=== PATIENT | male | born 1975 | race Caucasian/White ===

== ENCOUNTER 2024-11-24 13:17 | Emergency (ER) | payer MEDICARE, MEDICAID, SELFPAY ==
--- NOTE | 2024-11-24 13:20 | XR_ITS ---
WS: [id number] XR chest 1V portable [id number] REASON FOR EXAM: dyspnea/cough FINDINGS: No previous exam for comparison. Moderate tortuosity of the thoracic aorta. Significant cardiomegaly. Central pulmonary vein congestion and diffuse interstitial lung opacities and peribronchial cuffing. XR/XR chest 1V portable [id number] IMPRESSION: Congestive heart failure. Less likely acute or subacute pneumonitis.
[2024-11-24 13:21] VITALS: BP 99/59; PULSE 90; RESP 23; TEMP 36.6; O2SAT 99; BMI 88.6
--- NOTE | 2024-11-24 13:21 | W.ED.GENADLT ---
HPI - General Adult General: Chief complaint: Skin/Abscess/Foreign Body Stated complaint: ulcers - bed sores Time Seen by Provider: 11/24/24 13:19 History of Present Illness: 49-year-old morbidly obese male presents emergency room via EMS due to decubitus ulcers. Patient is awake and alert they report that he uses BiPAP continuously. Patient is morbidly obese enough that he takes 8 people to move him to the cot even then with significant difficulty. He denies any fever sweats or chills. Patient complains of joint pain and hip pain he has not fallen recently states he has decubitus ulcers on his shoulder and on his hips he has his left leg wrapped. He presents here from [facility]. He is difficult to get history for he can answer a few basic questions to understand. He denied chest pain he did seem to indicate some abdominal pain was difficult even to evaluate this. Associated symptoms: Reports dyspnea and rash; Deny chest pain Related Data Home Medications ?Medication ?Instructions ?Recorded ?Confirmed acetaminophen 500 mg tablet 1,000 mg PO Q6H PRN Pain 11/24/24 11/24/24 albuterol sulfate 90 mcg/actuation 2 puff inhalation Q6H PRN 11/24/24 11/24/24 aerosol inhaler Shortness Of Breath bisacodyl 10 mg rectal suppository 10 mg DE DAILY PRN Constipation 11/24/24 11/24/24 (Dulcolax (bisacodyl)) bumetanide 2 mg tablet 2 mg PO DAILY 11/24/24 11/24/24 buspirone 10 mg tablet 10 mg PO TID 11/24/24 11/24/24 cefdinir 300 mg capsule 300 mg PO BID 11/24/24 11/24/24 desvenlafaxine succinate 25 mg 25 mg PO DAILY 11/24/24 11/24/24 tablet,extended release 24 hr (Pristiq) digoxin 125 mcg (0.125 mg) tablet 125 mcg PO DAILY 11/24/24 11/24/24 ergocalciferol (vitamin D2) 1,250 1,250 mcg PO DAILY 11/24/24 11/24/24 mcg (50,000 unit) capsule esomeprazole magnesium 40 mg 40 mg PO DAILY 11/24/24 11/24/24 capsule,delayed release insulin lispro 100 unit/mL See Rx Instructions .Route .COMPLEX 11/24/24 11/24/24 subcutaneous pen ipratropium 0.5 mg-albuterol 3 mg 3 ml inhalation Q6H PRN Shortness 11/24/24 11/24/24 (2.5 mg base)/3 mL nebulization Of Breath soln levocetirizine 5 mg tablet 5 mg PO DAILY 11/24/24 11/24/24 magnesium oxide 400 mg (241.3 mg 400 mg PO DAILY 11/24/24 11/24/24 magnesium) tablet (MagOx) metolazone 5 mg tablet 5 mg PO Q12H 11/24/24 11/24/24 metoprolol succinate 50 mg 50 mg PO DAILY 11/24/24 11/24/24 tablet,extended release 24 hr naloxone 4 mg/actuation nasal spray 4 mg intranasal Q2M PRN overdose 11/24/24 11/24/24 nystatin 100,000 unit/gram topical 1 applic topical BID 11/24/24 11/24/24 powder (Nyamy) ondansetron HCl 4 mg tablet 4 mg PO Q8H 11/24/24 11/24/24 oxycodone-acetaminophen 10 mg-325 1 tab PO Q4H PRN Pain 11/24/24 11/24/24 mg tablet potassium chloride 10 mEq 10 meq PO DAILY 11/24/24 11/24/24 tablet,extended release rivaroxaban 20 mg tablet (Xarelto) 20 mg PO DAILY 11/24/24 11/24/24 rosuvastatin 10 mg tablet 10 mg PO DAILY 11/24/24 11/24/24 sacubitril 24 mg-valsartan 26 mg 1 tab PO BID 11/24/24 11/24/24 tablet spironolactone 50 mg tablet 50 mg PO DAILY 11/24/24 11/24/24 Review of Systems Const: Denies: fever(s) or chills Card: Denies: chest pain Resp: Reports: dyspnea GI: Reports: abdominal pain Skin/Breast: Reports: rash PFSH ED PFSH: Medical History Decubitus ulcers Morbid obesity Atrial fibrillation Congestive heart failure Physical Exam Const: GENERAL APPEARANCE: lethargic ORIENTATION/CONSCIOUSNESS: Yes confused and Yes lethargic HENMT: COMMON NORMALS: normocephalic, atraumatic and hearing grossly normal bilaterally HEAD & SCALP: normocephalic and atraumatic Resp: COMMON NORMALS: normal respiratory effort, No retractions and No use of accessory muscles AUSCULTATION: crackles, wheezes and diminished lung sounds Cardio: COMMON NORMALS: regular rate and No murmurs present (Cardio) RATE: regular rate RHYTHM: abnormal rhythm irregularly irregular GI: COMMON NORMALS: Soft to palpation and No hepatosplenomegaly present AUSCULTATION: Yes normoactive bowel sounds PALPATION: Yes Soft to palpation, No Tenderness to palpation present (GI), No Guarding due to palpation present (GI) and Yes No hepatosplenomegaly present OTHER: Difficult to assess due to body habitus Extremity: COMMON NORMALS: normal to inspection, capillary refill normal, no clubbing, cyanosis or edema, no calf tenderness and no pedal edema Neuro: SENSORIUM/ORIENTATION: Yes lethargic Skin: WOUNDS: Yes wounds noted OTHER: Course Vital Signs: Vital signs: Vital Signs Temperature 97.8 F 11/24/24 13:21 Pulse Rate 81 11/24/24 18:54 Respiratory Rate 23 H 11/24/24 13:21 Blood Pressure 109/71 11/24/24 18:54 Pulse Oximetry 91 11/24/24 18:54 Oxygen Delivery Me thod BiPAP 11/24/24 17:19 Oxygen Flow Rate 10 11/24/24 13:21 Fraction of Inspir ed Oxygen 35 11/24/24 17:45 MDM - General Adult Medical Decision Making Discussed with hospitalist to recommend transfer to facility with capability of advanced imaging. Medical Records I reviewed the patient's medical records. Lab Data I reviewed the patient's lab results. 11/24/24 13:38 11/24/24 13:38 Radiology Impressions Chest X-Ray 11/24/24 13:20 IMPRESSION: Congestive heart failure. Less likely acute or subacute pneumonitis. Gallbladder Ultrasound 11/24/24 16:40 IMPRESSION: Limited exam. No acute findings. Laboratory Results WBC 12.19 10^3/uL (3.29-11.43) H 11/24/24 13:38 RBC 3.68 10^6/uL (3.85-5.65) L 11/24/24 13:38 Hgb 11.60 g/dL (11.27-16.99) 11/24/24 13:38 Hct 37.5 % (37-53) 11/24/24 13:38 MCV 101.9 fl (82-101) H 11/24/24 13:38 MCH 31.5 pg (27-33) 11/24/24 13:38 MCHC 30.9 g/dL (30-55) 11/24/24 13:38 RDW 20.0 % (12.1-15.1) H 11/24/24 13:38 Plt Count 191 10^3/cmm (157-399) 11/24/24 13:38 MPV 10.3 fL (7.4-10.4) 11/24/24 13:38 Neut % (Auto) 86.1 % 11/24/24 13:38 Lymph % (Auto) 7.1 % 11/24/24 13:38 Stark % (Auto) 4.0 % 11/24/24 13:38 Eos % (Auto) 1.9 % 11/24/24 13:38 Baso % (Auto) 0.2 % 11/24/24 13:38 Neut # (Auto) 10.50 10^3/uL (1.8-7.7) H 11/24/24 13:38 Lymph # (Auto) 0.9 10^3/uL (0.8-4.8) 11/24/24 13:38 Stark # (Auto) 0.5 10^3/uL (0.2-0.9) 11/24/24 13:38 Eos # (Auto) 0.2 10^3/uL (0.0-0.8) 11/24/24 13:38 Baso # (Auto) 0.0 10^3/uL (0.0-0.1) 11/24/24 13:38 Nucleated RBC % (auto) 0.5 % 11/24/24 13:38 Nucleated RBCs # 0.1 /100WBC 11/24/24 13:38 Specimen Type Arterial 11/24/24 15:24 Sample Site Radial, left 11/24/24 15:24 ABG pH 7.50 (7.35-7.45) H 11/24/24 15:24 ABG pCO2 52.2 mmHg (35-45) H 11/24/24 15:24 ABG pO2 64.2 mmHg (80.0-100.0) L 11/24/24 15:24 ABG PO2/FiO2 Ratio 214 11/24/24 15:24 ABG HCO3 40.2 mmol/L (22-26) H 11/24/24 15:24 ABG O2 Saturation 91.4 11/24/24 15:24 ABG Base Excess 14.8 mmol/L (-2.0-2.0) H 11/24/24 15:24 Lars Test Pos 11/24/24 15:24 A-a O2 Gradient 11.1 mmHg (5-10) H 11/24/24 15:24 Hematocrit 35.8 % (42-52) L 11/24/24 15:24 Hgb O2 Saturation 88.1 % (95-100) L 11/24/24 15:24 Carboxyhemoglobin 2.8 %THgb (0.4-20.1) 11/24/24 15:24 Methemoglobin 0.9 % (0.4-1.5) 11/24/24 15:24 Total Hemoglobin 11.7 g/dL (14-18) L 11/24/24 15:24 Sodium 143.0 mmol/L (131-143) 11/24/24 15:24 Potassium 3.2 mmol/L (3.5-5.0) L 11/24/24 15:24 Glucose 111.0 mg/dL (70-115) 11/24/24 15:24 Ionized Calcium 1.1 mmol/L (1.1-1.4) 11/24/24 15:24 O2 Delivery Device Bipap 11/24/24 15:24 O2 Liters/Min 10.0 % 11/24/24 13:30 FiO2 30.0 % 11/24/24 15:24 Pediatric Licensed Practical Nurse ID [place] 11/24/24 15:24 Sodium 139 mmol/L (136-145) 11/24/24 13:38 Potassium 3.3 mmol/L (3.5-5.1) L 11/24/24 13:38 Chloride 96 mmol/L (98-107) L 11/24/24 13:38 Carbon Dioxide 34 mmol/L (22-29) H 11/24/24 13:38 Anion Gap 12.3 (5-19) 11/24/24 13:38 BUN 27 mg/dL (6-20) H 11/24/24 13:38 Creatinine 0.9 mg/dL (0.7-1.2) 11/24/24 13:38 GFR Calculation 89.7 mL/min (90-130) L 11/24/24 13:38 Glucose 114 mg/dL (65-115) 11/24/24 13:38 Calculated Osmolality 294 mOsm/kg (285-295) 11/24/24 13:38 Lactic Acid 2.5 mmol/L (0.5-2.2) H 11/24/24 13:38 Lactic Acid (Sepsis) 2.1 mmol/L (0.5-2.2) 11/24/24 15:42 Calcium 8.3 mg/dL (8.5-10.5) L 11/24/24 13:38 Total Bilirubin 2.3 mg/dL (0.15-1.2) H 11/24/24 13:38 AST 33 U/L (0-40) 11/24/24 13:38 ALT 31 U/L (0-41) 11/24/24 13:38 Alkaline Phosphatase 138 U/L (40-130) H 11/24/24 13:38 Creatine Kinase 91 U/L (39-308) 11/24/24 13:38 Total Protein 8.9 g/dL (6.6-8.7) H 11/24/24 13:38 Albumin 2.3 g/dL (3.5-5.2) L 11/24/24 13:38 Globulin 6.6 g/dL (1.3-4.6) H 11/24/24 13:38 Urine Color Dark yellow (Yellow) A 11/24/24 13:45 Urine Appearance Cloudy (CLEAR) A 11/24/24 13:45 Urine pH 8.0 (5-7) A 11/24/24 13:45 Ur Specific [place] 1.010 (1.005-1.030) 11/24/24 13:45 Urine Protein Negative (Negative) 11/24/24 13:45 Urine Glucose (UA) Negative (Normal) 11/24/24 13:45 Urine Ketones Negative (Negative) 11/24/24 13:45 Urine Blood 2+ (Negative) A 11/24/24 13:45 Urine Nitrate Positive (Negative) A 11/24/24 13:45 Urine Bilirubin Negative (Negative) 11/24/24 13:45 Urine Urobilinogen 1.0 mg/dL (Negative) 11/24/24 13:45 Ur Leukocyte Esterase 3+ (Negative) A 11/24/24 13:45 Urine RBC 6-10 /hpf (0-2) 11/24/24 13:45 Urine WBC >100 /hpf (0-5) H 11/24/24 13:45 Ur Squamous Epith Cells 0-5 /hpf (0-5) 11/24/24 13:45 Amorphous Sediment Not Reportable 11/24/24 13:45 Urine Bacteria 4+ /hpf (NONE) H 11/24/24 13:45 Hyaline Casts 55.01 /lpf 11/24/24 13:45 Digoxin 0.8 ng/mL (0.6-1.2) 11/24/24 13:38 All radiology interpretation(s) finalized by discharge Discharge Plan Discharge Patient Disposition: Xfer Short-Term Hosp Clinical Impression: Decubitus ulcers, Sepsis, Morbid obesity, UTI (urinary tract infection), Atrial fibrillation, Elevated bilirubin Condition: Stable Print Language: Urdu Coding Level of Care Code ED Marine Designer for Jose C Cosby
--- NOTE | 2024-11-24 13:25 | ECG_ITS ---
[facility]: 2024-[facility]24 Pat Name: Pio Torres Department: Room: Gender: Male Sea Captain: : 1975 Requested By: Evan Bower Order Number: [id number] Stan MD: Topher Dick M.D. Measurements Intervals Bruce Rate: 75 P: 0 MI: 0 QRS: 260 QRSD: 143 T: 91 QT: 437 QTc: 491 Interpretive Statements ATRIAL FIBRILLATION WITH ABERRANT CONDUCTION OR VENTRICULAR PREMATURE COMPLEXES INTRAVENTRICULAR CONDUCTION DELAY [130+ ms QRS DURATION] ANTEROSEPTAL MYOCARDIAL INFARCTION , OF INDETERMINATE AGE [40+ ms Q WAVE IN V1-V4] No previous ECG available for comparison Electronically Signed On 11-25-2024 13:38:39 CDT by Topher Dick M.D. [email or web address]
--- NOTE | 2024-11-24 13:35 | PC.PHAR ---
patient is from [facility]
[2024-11-24 13:40] LABS: ABG PCO2 48.9 mmHg (35-45); ABG PH Result 7.52 (7.35-7.45); Alveolar-Arterial Oxygen Gradi 2.2 mmHg (5-10); Arterial Blood Gas Hematocrit 36.8 % (42-52); Base Excess ABG 15.1 mmol/L (-2.0-2.0); Blood Gas Allen Test Pos; Blood Gas Operator Identificat WALCI; Blood Gas Sample Site Radial, left; Blood Gas Sample Type Arterial; Carboxyhemoglobin 2.8 %THgb (0.4-20.1); HCO3 ABG 39.9 mmol/L (22-26); HGB O2 Sat 90.7 % (95-100); Ionized Calcium Level - ABG 1.1 mmol/L (1.1-1.4); Methemoglobin 0.8 % (0.4-1.5); Oxygen Device SIMPLE MASK; Oxygen Saturation ABG 94.1; PO2 ABG 72.5 mmHg (80.0-100.0); Potassium Level - ABG 3.1 mmol/L (3.5-5.0)
[2024-11-24 13:52] LABS: Basophils % 0.2 %; Eosinophils # 0.2 10^3/uL (0.0-0.8); Eosinophils % 1.9 %; Hematocrit 37.5 % (37-53); Lymphocytes # 0.9 10^3/uL (0.8-4.8); Lymphocytes % 7.1 %; Mean Corpuscular HGB Conc 30.9 g/dL (30-55); Mean Corpuscular Hemoglobin 31.5 pg (27-33); Mean Corpuscular Volume 101.9 fl (82-101); Mean Platelet Volume 10.3 fL (7.4-10.4); Monocytes # 0.5 10^3/uL (0.2-0.9); Neutrophils % 86.1 %; Nucleated Red Blood Cells # 0.1 /100WBC; Nucleated Red Blood Cells % 0.5 %; Platelet Count 191 10^3/cmm (157-399); Red Blood Count 3.68 10^6/uL (3.85-5.65); White Blood Count 12.19 10^3/uL (3.29-11.43)
[2024-11-24 13:52] LABS: Bilirubin Urine Negative (Negative); Blood Urine 2+ (Negative); Glucose Urine UA Negative (Normal); Ketones Urine Negative (Negative); Leukocyte Esterase Urine 3+ (Negative); Nitrate Urine Positive (Negative); Protein Urine Negative (Negative); Urine Appearance Cloudy (CLEAR)
[2024-11-24 13:57] LABS: Add Urine Microscopic? YES; Bacteria Urine 4+ /hpf; Hyaline Casts Urine 55.01 /lpf; Squamous Epithelial Cell Urine 0-5 /hpf (0-5); WBC Urine >100 /hpf (0-5)
[2024-11-24 14:10] LABS: Alanine Aminotransferase 31 U/L (0-41); Albumin Level 2.3 g/dL (3.5-5.2); Alkaline Phosphatase 138 U/L (40-130); Anion Gap 12.3 (5-19); Aspartate Amino Transferase 33 U/L (0-40); Blood Urea Nitrogen 27 mg/dL (6-20); Calcium 8.3 mg/dL (8.5-10.5); Carbon Dioxide 34 mmol/L (22-29); Chloride 96 mmol/L (98-107); Creatine Phosphokinase 91 U/L (39-308); Creatinine Clr Calc Pharmacy 212.4485; Globulin 6.6 g/dL (1.3-4.6); Glomerular Filtration Rate 89.7 mL/min (90-130); Glucose 114 mg/dL (65-115); Lactic Sepsis W/Reflex 2.5 mmol/L (0.5-2.2); Osmolality Calculated 294 mOsm/kg (285-295); Potassium 3.3 mmol/L (3.5-5.1); Sodium 139 mmol/L (136-145); Total Bilirubin 2.3 mg/dL (0.15-1.2); Total Protein 8.9 g/dL (6.6-8.7)
[2024-11-24 14:11] VITALS: PULSE 76; RESP 24; O2SAT 98
[2024-11-24 14:16] LABS: Urine Color Dark Yellow (Yellow)
[2024-11-24 14:21] LABS: Add Urine Culture? Yes
--- NOTE | 2024-11-24 15:08 | PM.CONSULT ---
Providers/Reason For Consult Consulting Physician/Specialty*: Internal Medicine Reason for Consult*: ER patient History of Present Illness History of Present Illness Pio Torres is a 49 year old male With past medical history of congestive heart failure on Entresto, atrial fibrillation, on chronic anticoagulation, severe morbid obesity, pen[facility] resident, diabetes mellitus insulin-dependent, chronic combined systolic and diastolic heart failure, chronic respiratory failure with hypoxia, hyperlipidemia, major depressive disorder, generalized muscle weakness, nontoxic multinodular goiter history of pulmonary embolism, obstructive sleep apnea, posttraumatic stress disorder, iron deficiency anemia, moderate persistent asthma, hypertension, generalized anxiety disorder, COPD, chronic atrial fibrillation presented to the hospital from [facility] due to decubitus ulcers. Initially when he came to the ER he denied any fever sweats or chills. He complains of joint pain hip pain and pain all over. Denied chest pain dyspnea or rash. When hospitalist interviewed the patient he stated he hurt it all over and did not give me a specific complaint. He seems to be somewhat altered. Currently on BiPAP. Does have wounds to bilateral lower extremities and decubitus ulcers. Images present in ER note. For skin examination I referred to ER images as I cannot examine skin secondary to patient's very large body habitus. Initial labs showed WBC 12,000, hemoglobin 11.6, sodium 142, potassium 3.1, glucose 117, creatinine 0.9, lactic acid 2.5, alkaline phosphatase 138, total bilirubin 2.3. Medina catheter dark urine with greater than 100 WBC, 3+ leukocyte esterase, 2+ blood, positive nitrates. Patient unable to provide a history at this time. History obtained from chart ER doctor nursing staff and paperwork sent via nursing facility. Medications/Allergies Home Medications ?Medication ?Instructions ?Recorded ?Confirmed ?Last Taken ?Type acetaminophen 500 mg tablet 1,000 mg PO Q6H PRN Pain 11/24/24 11/24/24 11/24/24 History albuterol sulfate 90 mcg/actuation 2 puff inhalation Q6H PRN 11/24/24 11/24/24 11/24/24 History aerosol inhaler Shortness Of Breath bisacodyl 10 mg rectal suppository 10 mg UT DAILY PRN Constipation 11/24/24 11/24/24 11/24/24 History (Dulcolax (bisacodyl)) bumetanide 2 mg tablet 2 mg PO DAILY 11/24/24 11/24/24 11/24/24 History buspirone 10 mg tablet 10 mg PO TID 11/24/24 11/24/24 11/24/24 History cefdinir 300 mg capsule 300 mg PO BID 11/24/24 11/24/24 11/24/24 History desvenlafaxine succinate 25 mg 25 mg PO DAILY 11/24/24 11/24/24 11/24/24 History tablet,extended release 24 hr (Pristiq) digoxin 125 mcg (0.125 mg) tablet 125 mcg PO DAILY 11/24/24 11/24/24 11/24/24 History ergocalciferol (vitamin D2) 1,250 1,250 mcg PO DAILY 11/24/24 11/24/24 11/24/24 History mcg (50,000 unit) capsule esomeprazole magnesium 40 mg 40 mg PO DAILY 11/24/24 11/24/24 11/24/24 History capsule,delayed release insulin lispro 100 unit/mL See Rx Instructions .Route .COMPLEX 11/24/24 11/24/24 11/24/24 History subcutaneous pen ipratropium 0.5 mg-albuterol 3 mg 3 ml inhalation Q6H PRN Shortness 11/24/24 11/24/24 11/24/24 History (2.5 mg base)/3 mL nebulization Of Breath soln levocetirizine 5 mg tablet 5 mg PO DAILY 11/24/24 11/24/24 11/24/24 History magnesium oxide 400 mg (241.3 mg 400 mg PO DAILY 11/24/24 11/24/24 11/24/24 History magnesium) tablet (MagOx) metolazone 5 mg tablet 5 mg PO Q12H 11/24/24 11/24/24 11/24/24 History metoprolol succinate 50 mg 50 mg PO DAILY 11/24/24 11/24/24 11/24/24 History tablet,extended release 24 hr naloxone 4 mg/actuation nasal spray 4 mg intranasal Q2M PRN overdose 11/24/24 11/24/24 Unknown History nystatin 100,000 unit/gram topical 1 applic topical BID 11/24/24 11/24/24 11/24/24 History powder (Nyamyc) ondansetron HCl 4 mg tablet 4 mg PO Q8H 11/24/24 11/24/24 Unknown History oxycodone-acetaminophen 10 mg-325 1 tab PO Q4H PRN Pain 11/24/24 11/24/24 11/24/24 History mg tablet potassium chloride 10 mEq 10 meq PO DAILY 11/24/24 11/24/24 11/24/24 History tablet,extended release rivaroxaban 20 mg tablet (Xarelto) 20 mg PO DAILY 11/24/24 11/24/24 11/24/24 History rosuvastatin 10 mg tablet 10 mg PO DAILY 11/24/24 11/24/24 11/24/24 History sacubitril 24 mg-valsartan 26 mg 1 tab PO BID 11/24/24 11/24/24 11/24/24 History tablet spironolactone 50 mg tablet 50 mg PO DAILY 11/24/24 11/24/24 11/24/24 History PFSH Acute PFSH: Medical History Decubitus ulcers Morbid obesity Atrial fibrillation Congestive heart failure Vitals/I&O/Wt Last Vital Signs Temp 97.8 F 11/24/24 13:21 Pulse 76 11/24/24 14:11 Resp 23 H 11/24/24 13:21 BP 99/59 11/24/24 13:21 Pulse Ox 98 11/24/24 14:11 O2 Del Method Nasal Cannula 11/24/24 13:21 O2 Flow Rate 10 11/24/24 13:21 FiO2 30 11/24/24 14:11 Weight last 48 hrs Weight 272.155 kg Physical Exam Narrative: General: Obese male laying in bed with BiPAP on. Altered, mumbling. Unable to answer his questions third and telling me his name. HEENT: Normocephalic, atraumatic, EOMI, on BiPAP at this time. Cardio: Very muffled heart sounds difficult to auscultate secondary to large body habitus Respiratory: Mainly clear to auscultation anteriorly, unable to accurately assess due to very muffled breath sounds due to body habitus and transmitted breath sounds from BiPAP. GI: Abdomen soft, generalized tenderness to palpation, bowel sounds present. Behavior: Altered Extremities: Various lower extremity wounds present. Data 11/24/24 13:38 11/24/24 13:38 Micro: Microbiology 11/24/24 13:41 Blood Culture - Preliminary Blood SPECIMEN COLLECTED 11/24/24 13:38 Blood Culture - Preliminary Blood SPECIMEN COLLECTED A&P Assessment and plan (1) Sepsis: (2) UTI (urinary tract infection): (3) Respiratory alkalosis: (4) Lactic acidosis: (5) Hypoxia: (6) Congestive heart failure: (7) Atrial fibrillation: (8) Wound of lower extremity: (9) Decubitus ulcers: (10) Leukocytosis: Plan #Sepsis secondary to UTI versus respiratory cause #Lactic acidosis #Severe morbid obesity #Decubitus ulcers #Bilateral lower extremity wounds #Chronic congestive heart failure, possibly systolic with EF less than 35% #Atrial fibrillation, rate controlled #Diabetes mellitus, insulin-dependent #Respiratory alkalosis, hypercapnia #Altered mental status # History of pulmonary embolism #Moderate persistent asthma #Hyperlipidemia #Chronic combined systolic diastolic heart failure. We are unable to obtain imaging on the patient secondary to extremely large body habitus. Patient exceeds the weight and circumference size limit for our CT scanner. Our maximum allowed with this 30 inches and patient's girth is greater than 36 inches. We are unable to perform diagnostic CT scan on patient. Ultrasound may be attempted however it will not give us pertinent information secondary to large abdominal fat pad. Patient also has evidence of congestive heart failure noted from his home medications. He is on Entresto spironolactone, metoprolol succinate digoxin and Bumex 2 mg daily which would indicate his EF may be less than 35%. I do not have any records on the patient at this time. Patient meets sepsis criteria secondary to UTI versus respiratory cause. Renal stone must be ruled out for which we will need imaging studies. Total bilirubin elevated at 2.3 as well. Patient currently requiring 10 L nasal cannula possibly secondary respiratory failure secondary to sepsis. Recommend CTA chest to rule out PE as patient carries a history of this from the past as well.. Will he is also altered most likely secondary to metabolic encephalopathy. Most likely source urine versus respiratory as stated above. Patient will require further diagnostic workup however our facility is not equipped with diagnostic imaging services that would meet his girth and weight limit and therefore I recommend transfer to a facility where they be better accommodated. Agree with vancomycin and Zosyn and sepsis bolus given by ER. Check blood cultures, urine culture, sputum culture gram stain. Low threshold to intubate. Recheck blood gas and if worsening will need to be intubated. Check echocardiogram, troponins. EKG does show atrial fibrillation, rate controlled. Q waves in anterior leads indicating old [place]. Patient will need general surgery consultation for evaluation of wounds and possible debridement. Wound care consult also recommended. Keep n.p.o. Once more coherent will require speech swallow evaluation Continue IV fluids at 70 cc/h for gentle fluid hydration secondary to sepsis. Watch for fluid overload which will be difficult to assess secondary to body habitus. Continue moderate dose intensity sliding scale insulin every 6 hours Recommend transfer to higher level of care for further diagnostic imaging especially CT scan could be performed. PDMP PDMP Reviewed: Not Reviewed Diagnoses Sepsis A41.9 UTI (urinary tract infection) N39.0 Respiratory alkalosis E87.3 Lactic acidosis E87.20 Hypoxia R09.02 Congestive heart failure I50.9 Atrial fibrillation I48.91 Wound of lower extremity S81.809A Decubitus ulcers L89.90 Leukocytosis D72.829
[2024-11-24] MEDS: VANCOMYCIN ADD-Vantage 1,000 MG in 0.9% NaCl ADD-Vantage 250 ML 250 MG IV (15:32)
[2024-11-24] MEDS: piperacillin-tazobactam 3.375 GM in sodium chloride 0.9% (plus) 50 ML IV (15:33)
[2024-11-24 15:35] LABS: Reflex Lactate Order REFLEX LACTIC ORDERD
[2024-11-24 15:35] LABS: ABG PCO2 52.2 mmHg (35-45); Alveolar-Arterial Oxygen Gradi 11.1 mmHg (5-10); Arterial Blood Gas Hematocrit 35.8 % (42-52); Base Excess ABG 14.8 mmol/L (-2.0-2.0); Blood Gas Allen Test Pos; Blood Gas Operator Identificat WALCI; Blood Gas Sample Site Radial, left; Blood Gas Sample Type Arterial; Carboxyhemoglobin 2.8 %THgb (0.4-20.1); HCO3 ABG 40.2 mmol/L (22-26); HGB O2 Sat 88.1 % (95-100); Ionized Calcium Level - ABG 1.1 mmol/L (1.1-1.4); Methemoglobin 0.9 % (0.4-1.5); Oxygen Device BIPAP; Oxygen Saturation ABG 91.4; PO2 ABG 64.2 mmHg (80.0-100.0); PO2 FiO2 Ratio Arterial Blood 214; Potassium Level - ABG 3.2 mmol/L (3.5-5.0); Total Hemoglobin 11.7 g/dL (14-18)
[2024-11-24 15:44] VITALS: PULSE 79; RESP 24; O2SAT 98
[2024-11-24 16:15] LABS: Lactic Acid level (Lactate) 2.1 mmol/L (0.5-2.2)
[2024-11-24 16:28] LABS: Digoxin 0.8 ng/mL (0.6-1.2)
--- NOTE | 2024-11-24 16:40 | USR_ITS ---
PROCEDURE INFORMATION: Exam: US Abdomen, Limited; Right Upper Quadrant Exam date and time: 11/24/2024 5:24 PM Age: 49 years old Clinical indication: Abnormal findings; Abnormal lab test; Other: Elevated tbili; PT wouldn't respond to question about surgery. Gb not visualized at this time with no info on if it was surgically removed or not; Additional info: Elevated t bili TECHNIQUE: Imaging protocol: Real time ultrasound of the abdomen with image documentation. Limited exam focused on the right upper quadrant. COMPARISON: No relevant prior studies available. FINDINGS: Liver: Liver is slightly enlarged measuring about 18.8 cm in length. No mass. Gallbladder: Gallbladder is not visualized. Patient is unable to communicate history. Biliary ducts: Common bile duct measures about 7 mm in diameter which is normal if cholecystectomy performed. Pancreas: The pancreas is obscured by bowel. Right kidney: Normal. No mass. No hydronephrosis. US/US gall bladder [id number] IMPRESSION: Limited exam. No acute findings.
--- NOTE | 2024-11-24 16:55 | PC.NURSE ---
FLUIDS AND ABX DELAYED DUE TO NEED FOR BIGGER BED TO ASSESS PT POSTERIOR WOUNDS.
[2024-11-24 17:19] VITALS: BP 115/79; PULSE 87; O2SAT 87
[2024-11-24 17:45] VITALS: RESP 22; O2SAT 95
[2024-11-24 18:54] VITALS: BP 109/71; PULSE 81; O2SAT 91
--- NOTE | 2024-11-24 19:00 | PC.NURSE ---
PT UNABLE TO TOLERATE EMS CPAP. PER DR. GALICIA PT OK TO GO ON NON-REBREATHER. PT TOLERATING AND SATURATING 100% BY NON-REBREATHER.
== END 2024-11-24 18:56 | disposition short-term general hospital (02) ==
PROVIDERS: Emergency Provider Family Medicine
DX: A41.9 Sepsis, unspecified organism (principal); N39.0 Urinary tract infection, site not specified; I48.91 Unspecified atrial fibrillation; E66.01 Morbid (severe) obesity due to excess calories; R17 Unspecified jaundice; I50.9 Heart failure, unspecified; L89.229 Pressure ulcer of left hip, unspecified stage; L89.219 Pressure ulcer of right hip, unspecified stage; L89.109 Pressure ulcer of unspecified part of back, unspecified stage
CPT/HCPCS: 36415; 36600; 71045; 76705; 80051; 80053; 80162; 81001; 82330; 82550; 82805; 83605; 85025; 87040; 87077; 87086; 87186; 93005; 94660; 96365; 96367; 99285; J2543; J3370; J7030; J7050

== ENCOUNTER 2024-12-19 10:11 | Observation (INO) | payer MEDICARE, MEDICAID, SELFPAY ==
[2024-12-19] VITALS (32 sets, daily range): BP systolic 70–135; BP diastolic 51–109; PULSE 64–95; RESP 16–34; O2SAT 70–98
--- NOTE | 2024-12-19 10:26 | XR_ITS ---
WS: [id number] XR chest 1V portable [id number] REASON FOR EXAM: dyspnea/cough FINDINGS: Compared to the examination of 11/24/2024 there may have been some improvement in the right lower lung reticular interstitial and groundglass opacities. Moderate residual abnormality remains. There is significant cardiomegaly and central venous congestion and enlargement of the central pulmonary arteries. XR/XR chest 1V portable [id number] IMPRESSION: Previous abnormalities from 11/24/2024 partially resolved as above. Findings are more compatible with congestive failure than pneumonitis.
--- NOTE | 2024-12-19 10:26 | ECG_ITS ---
[employer] [facility] Test Date: 2024-12-19 Pat Name: Pio Torres Department: Room: Gender: Male Media Librarian: : 1975 Requested By: Evan Bower Order Number: [id number] Stan MD: Topher Dick M.D. Measurements Intervals [place] Rate: 87 P: 0 VT: 0 QRS: 259 QRSD: 130 T: 77 QT: 379 QTc: 458 Interpretive Statements ATRIAL FIBRILLATION WITH ABERRANT CONDUCTION OR VENTRICULAR PREMATURE COMPLEXES RIGHT AXIS DEVIATION [QRS AXIS > 100] RIGHT BUNDLE BRANCH BLOCK [120+ ms QRS DURATION, UPRIGHT V1, 40+ ms S IN I/aVL/V4/V5/V6] ANTEROSEPTAL MYOCARDIAL INFARCTION , OF INDETERMINATE AGE [40+ ms Q WAVE IN V1-V4] Compared to ECG 11/24/2024 13:25:24 Right-axis deviation now present Right bundle-branch block now present Intraventricular conduction delay no longer present Myocardial infarct finding still present Electronically Signed On 12-20-2024 11:37:18 CDT by Topher Dick M.D. [email or web address]
[2024-12-19 10:43] LABS: ABG PCO2 44.3 mmHg (35-45); ABG PH Result 7.36 (7.35-7.45); Alveolar-Arterial Oxygen Gradi 41.1 mmHg (5-10); Arterial Blood Gas Hematocrit 36.2 % (42-52); Blood Gas Allen Test Pos; Blood Gas Operator Identificat CAK; Blood Gas Sample Site Brachial, left; Blood Gas Sample Type Arterial; Carboxyhemoglobin 1.6 %THgb (0.4-20.1); HCO3 ABG 24.7 mmol/L (22-26); HGB O2 Sat 80.6 % (95-100); Ionized Calcium Level - ABG 1.1 mmol/L (1.1-1.4); Oxygen Device BIPAP; Oxygen Saturation ABG 81.9; PO2 ABG 56.5 mmHg (80.0-100.0); PO2 FiO2 Ratio Arterial Blood 94; Potassium Level - ABG 4.5 mmol/L (3.5-5.0); Total Hemoglobin 11.8 g/dL (14-18)
--- NOTE | 2024-12-19 10:46 | W.ED.WEAKNES ---
HPI - Weakness General: Chief complaint: Weakness Stated complaint: Weakness, AMS Time Seen by Provider: 12/19/24 10:25 History of Present Illness: 49-year-old male super morbidly obese male presents emergency room via EMS. He has had altered mental status since yesterday. He is not able to manage any of his ADLs he supposed to be on BiPAP the tube was excessively long when he first got here he was hypoxic with a addition of oxygen he improved. First blood gas was surprisingly not hypercapnic. Patient is obtunded not able to give any significant contributions to history. Patient was admitted in early November for sepsis. Review of Systems General: Reports: ROS unobtainable due to mental status PFSH ED PFSH: Medical History Decubitus ulcers Morbid obesity Atrial fibrillation Congestive heart failure Physical Exam Const: GENERAL APPEARANCE: lethargic ORIENTATION/CONSCIOUSNESS: Yes awake, Yes confused and Yes lethargic HENMT: COMMON NORMALS: normocephalic, atraumatic and hearing grossly normal bilaterally HEAD & SCALP: normocephalic and atraumatic Resp: EFFORT & INSPECTION: Yes decreased respiratory effort and Yes labored AUSCULTATION: rhonchi, wheezes and diminished lung sounds Cardio: COMMON NORMALS: regular rate, regular rhythm and No murmurs present (Cardio) RATE: regular rate RHYTHM: regular rhythm GI: COMMON NORMALS: Soft to palpation and No hepatosplenomegaly present AUSCULTATION: Yes normoactive bowel sounds PALPATION: Yes Soft to palpation, No Tenderness to palpation present (GI), No Guarding due to palpation present (GI) and Yes No hepatosplenomegaly present Extremity: COMMON NORMALS: normal to inspection, capillary refill normal, no clubbing, cyanosis or edema, no calf tenderness and no pedal edema Neuro: SENSORIUM/ORIENTATION: Yes lethargic Skin: COMMON NORMALS: no rashes or lesions noted GENERAL SKIN EXAM: no rashes or lesions noted Procedures Central Line Placement Right IJ: Time Out Performed: Yes Patient Placed on Monitor/Pulse Ox: Yes MD Prep: mask, gown and gloves Central Line Prep: Chlorhexidine scrub Local Anesthetic: lidocaine 1% Amount of anesthesia used (mL): 5 Ultrasound Used for Placement: Yes Central Line Lumen Inserted: triple Post Procedure: sutured in place, good blood return, all ports aspirated, flushed, capped and sterile dressing applied Post Procedure X-Ray: tip of catheter in good position Patient Tolerated Procedure: well Complications: none Course Vital Signs: Vital signs: Vital Signs Temperature 97.9 F 12/20/24 12:00 Pulse Rate 64 12/20/24 14:00 Respiratory Rate 19 H 12/20/24 14:00 Blood Pressure 87/66 12/20/24 14:00 Pulse Oximetry 92 12/20/24 14:00 Oxygen Delivery Me thod BiPAP 12/20/24 14:00 Fraction of Inspir ed Oxygen 28 12/20/24 14:00 MDM - Weakness Medical Decision Making Patient's subsequent parents troponin trending up he also has acute kidney injury sepsis is originating from bladder infection. He also has pretty significant CHF is decompensated suspect he may have some cardiogenic shock. His acute respiratory failure is improved with BiPAP. His leg wounds are improved from when we had seen him previously and sent him to [place] we are working on getting records from [place] from the last transfer. Ordered a stat echo to try to differentiate if he may have right heart strain versus any wall motion abnormality suggestive of an acute NV. We have started heparin. Central line has been placed. We have called several different facilities [facility] took him previously and they have ability for advanced imaging for his size but they are not able to take any new patients. We tried multiple other facilities including [facility] to [facility] none of these facilities are able to manage his size and meet his needs for advanced imaging. Will consult the hospitalist to help with comanagement continue to work on finding placement we are calling [facility] back to see if they will allow us to put him on a waiting list. Lab Data 12/20/24 03:33 12/20/24 11:04 Radiology Impressions Chest X-Ray 12/20/24 10:44 IMPRESSION: Stable abnormal chest as above. KUB X-Ray 12/20/24 10:45 IMPRESSION: Low quality diagnostic study as above. No acute abnormality identified. Laboratory Results WBC 18.37 10^3/uL (3.29-11.43) H 12/19/24 10:59 RBC 3.34 10^6/uL (3.85-5.65) L 12/19/24 10:59 Hgb 11.00 g/dL (11.27-16.99) L 12/19/24 10:59 Hct 36.7 % (37-53) L 12/19/24 10:59 MCV 109.9 fl (82-101) H 12/19/24 10:59 MCH 32.9 pg (27-33) 12/19/24 10:59 MCHC 30.0 g/dL (30-55) 12/19/24 10:59 RDW 21.8 % (12.1-15.1) H 12/19/24 10:59 Plt Count 222 10^3/cmm (157-399) 12/19/24 10:59 Plt Count Cancelled 12/19/24 10:59 MPV 10.8 fL (7.4-10.4) H 12/19/24 10:59 Neut % (Auto) 88.1 % 12/19/24 10:59 Lymph % (Auto) 6.2 % 12/19/24 10:59 Lea % (Auto) 4.4 % 12/19/24 10:59 Eos % (Auto) 0.1 % 12/19/24 10:59 Baso % (Auto) 0.2 % 12/19/24 10:59 Neut # (Auto) 16.21 10^3/uL (1.8-7.7) H 12/19/24 10:59 Lymph # (Auto) 1.1 10^3/uL (0.8-4.8) 12/19/24 10:59 Lea # (Auto) 0.8 10^3/uL (0.2-0.9) 12/19/24 10:59 Eos # (Auto) 0.0 10^3/uL (0.0-0.8) 12/19/24 10:59 Baso # (Auto) 0.0 10^3/uL (0.0-0.1) 12/19/24 10:59 Nucleated RBC % (auto) 3.2 % 12/19/24 10:59 Nucleated RBCs # 0.6 /100WBC 12/19/24 10:59 Specimen Type Arterial 12/19/24 16:59 Sample Site Brachial, left 12/19/24 16:59 ABG pH 7.42 (7.35-7.45) 12/19/24 16:59 ABG pCO2 49.9 mmHg (35-45) H 12/19/24 16:59 ABG pO2 77.0 mmHg (80.0-100.0) L 12/19/24 16:59 ABG PO2/FiO2 Ratio 275 12/19/24 16:59 ABG HCO3 32.0 mmol/L (22-26) H 12/19/24 16:59 ABG O2 Saturation 93.7 12/19/24 16:59 ABG Base Excess 6.4 mmol/L (-2.0-2.0) H 12/19/24 16:59 Lars Test Pos 12/19/24 16:59 A-a O2 Gradient 7.9 mmHg (5-10) 12/19/24 16:59 Hematocrit 36.5 % (42-52) L 12/19/24 16:59 Hgb O2 Saturation 91.2 % (95-100) L 12/19/24 16:59 Carboxyhemoglobin 1.8 %THgb (0.4-20.1) 12/19/24 16:59 Methemoglobin 0.9 % (0.4-1.5) 12/19/24 16:59 Total Hemoglobin 11.9 g/dL (14-18) L 12/19/24 16:59 Sodium 141.0 mmol/L (131-143) 12/19/24 16:59 Potassium 4.1 mmol/L (3.5-5.0) 12/19/24 16:59 Glucose 166.0 mg/dL (70-115) H 12/19/24 16:59 Ionized Calcium 1.1 mmol/L (1.1-1.4) 12/19/24 16:59 O2 Delivery Device Bipap 12/19/24 16:59 O2 Liters/Min 10.0 % 12/19/24 10:31 FiO2 28.0 % 12/19/24 16:59 Traveling Construction Superintendent ID Cak 12/19/24 16:59 Sodium 139 mmol/L (136-145) 12/19/24 10:59 Potassium 4.6 mmol/L (3.5-5.1) 12/19/24 10:59 Chloride 94 mmol/L (98-107) L 12/19/24 10:59 Carbon Dioxide 24 mmol/L (22-29) 12/19/24 10:59 Anion Gap 25.6 (5-19) H 12/19/24 10:59 BUN 53 mg/dL (6-20) H 12/19/24 10:59 Creatinine 3.1 mg/dL (0.7-1.2) H 12/19/24 10:59 GFR Calculation 21.5 mL/min (90-130) L 12/19/24 10:59 Glucose 104 mg/dL (65-115) 12/19/24 10:59 POC Glucose 104 mg/dL (70-110) 12/19/24 10:20 Estimat Average Glucose 126 12/19/24 16:19 Hemoglobin A1c 6.0 % (4.0-6.0) 12/19/24 16:19 Calculated Osmolality 303 mOsm/kg (285-295) H 12/19/24 10:59 Lactic Acid 10.7 mmol/L (0.5-2.2) H* 12/19/24 10:59 Lactic Acid (Sepsis) 4.8 mmol/L (0.5-2.2) H* 12/19/24 14:44 Calcium 8.4 mg/dL (8.5-10.5) L 12/19/24 10:59 Phosphorus 5.0 mg/dL (2.5-4.5) H 12/19/24 14:23 Total Bilirubin 2.5 mg/dL (0.15-1.2) H 12/19/24 10:59 AST 150 U/L (0-40) H 12/19/24 10:59 ALT 43 U/L (0-41) H 12/19/24 10:59 Alkaline Phosphatase 261 U/L (40-130) H 12/19/24 10:59 Troponin T Baseline 252 ng/L (0-15) H* 12/19/24 10:59 Troponin T 120 Minute 286.5 ng/L (0-15) H 12/19/24 14:23 Delta Troponin T 34.5 ABS# (0-10) H* 12/19/24 14:23 C-Reactive Protein 33.0 mg/L (0.0-4.9) H 12/19/24 14:23 NT-Pro-B Natriuret Pep 03953 pg/mL (0-125) H 12/19/24 10:59 Total Protein 8.4 g/dL (6.6-8.7) 12/19/24 10:59 Albumin 2.5 g/dL (3.5-5.2) L 12/19/24 10:59 Globulin 5.9 g/dL (1.3-4.6) H 12/19/24 10:59 Lipase 27 U/L (13-60) 12/19/24 10:59 Procalcitonin 0.68 ng/mL (0-0.5) H 12/19/24 14:23 TSH 9.06 uIU/mL (0.27-4.20) H 12/19/24 14: Free T4 0.95 ng/dL (0.82-1.77) 12/19/24 10:59 Urine Color Dark yellow (Yellow) A 12/19/24 11:30 Urine Appearance Turbid (CLEAR) A 12/19/24 11:30 Urine pH 5.5 (5-7) 12/19/24 11:30 Ur Specific [place] 1.013 (1.005-1.030) 12/19/24 11:30 Urine Protein 2+ (Negative) A 12/19/24 11:30 Urine Glucose (UA) Negative (Normal) 12/19/24 11:30 Urine Ketones Negative (Negative) 12/19/24 11:30 Urine Blood 3+ (Negative) A 12/19/24 11:30 Urine Nitrate Negative (Negative) 12/19/24 11:30 Urine Bilirubin Negative (Negative) 12/19/24 11:30 Urine Urobilinogen 1.0 mg/dL (Negative) 12/19/24 11:30 Ur Leukocyte Esterase 3+ (Negative) A 12/19/24 11:30 Urine RBC 6-10 /hpf (0-2) 12/19/24 11:30 Urine WBC >100 /hpf (0-5) H 12/19/24 11:30 Ur Squamous Epith Cells 0-5 /hpf (0-5) 12/19/24 11:30 Amorphous Sediment Not Reportable 12/19/24 11:30 Urine Bacteria 4+ /hpf (NONE) H 12/19/24 11:30 Hyaline Casts 40.54 /lpf 12/19/24 11:30 Digoxin 1.6 ng/mL (0.6-1.2) H 12/19/24 11:11 Serum Ketones Negative (Negative) 12/19/24 10:59 Influenza A (PCR) Negative (Negative) 12/19/24 11:36 Influenza Type B (PCR) Negative (Negative) 12/19/24 11:36 RSV (PCR) Negative (Negative) 12/19/24 11:36 SARS-CoV-2 (PCR) Negative (Negative) 12/19/24 11:36 All radiology interpretation(s) finalized by discharge Critical Care Time Critical Care Time: Critical Care Time: Yes Total Critical Care Time: 90 Attestation: The high probability of a clinically significant, sudden or life threatening deterioration of the patient's cardiovascular respiratory renal system(s) required my full and direct attention, intervention and personal management. The critical care time is as shown. This time is in addition to time spent performing any reported procedures but includes the following: [x] Data and vital sign review and interpretation [x] Patient assessment, examination and intervention [x] Documentation [x] Medication orders and management Discharge Plan Discharge Patient Disposition: Admitted As Inpatient Admit Provider: Maya Wellington Clinical Impression: MALIK (acute kidney injury), Shock, UTI (urinary tract infection), Lactic acidosis, Morbid obesity, Acute hypoxic respiratory failure Sepsis Qualifiers: Sepsis type: sepsis due to unspecified organism Sepsis acute organ dysfunction status: unspecified Qualified Code(s): A41.9 - Sepsis, unspecified organism Congestive heart failure Qualifiers: Heart failure type: other Qualified Code(s): I50.9 - Heart failure, unspecified Atrial fibrillation Qualifiers: Atrial fibrillation type: unspecified Qualified Code(s): I48.91 - Unspecified atrial fibrillation Condition: Stable Coding Level of Care Code ED Analyst for Chg Fwd Related Data Home Medications ?Medication ?Instructions ?Recorded ?Confirmed acetaminophen 500 mg tablet 1,000 mg PO Q6H PRN Pain 11/24/24 12/19/24 albuterol sulfate 90 mcg/actuation 2 puff inhalation Q6H PRN 11/24/24 12/19/24 aerosol inhaler Shortness Of Breath bisacodyl 10 mg rectal suppository 10 mg ME DAILY PRN Constipation 11/24/24 12/19/24 (Dulcolax (bisacodyl)) bumetanide 2 mg tablet 2 mg PO DAILY 11/24/24 12/19/24 buspirone 10 mg tablet 10 mg PO TID 11/24/24 12/19/24 desvenlafaxine succinate 25 mg 25 mg PO DAILY 11/24/24 12/19/24 tablet,extended release 24 hr (Pristiq) digoxin 125 mcg (0.125 mg) tablet 125 mcg PO DAILY 11/24/24 12/19/24 ergocalciferol (vitamin D2) 1,250 1,250 mcg PO DAILY 11/24/24 12/19/24 mcg (50,000 unit) capsule esomeprazole magnesium 40 mg 40 mg PO DAILY 11/24/24 12/19/24 capsule,delayed release insulin lispro 100 unit/mL See Rx Instructions .Route .COMPLEX 11/24/24 12/19/24 subcutaneous pen ipratropium 0.5 mg-albuterol 3 mg 3 ml inhalation Q6H PRN Shortness 11/24/24 12/19/24 (2.5 mg base)/3 mL nebulization Of Breath soln levocetirizine 5 mg tablet 5 mg PO DAILY 11/24/24 12/19/24 magnesium oxide 400 mg (241.3 mg 400 mg PO BID 11/24/24 12/19/24 magnesium) tablet (MagOx) metolazone 5 mg tablet 5 mg PO BID 11/24/24 12/19/24 metoprolol succinate 50 mg 50 mg PO DAILY 11/24/24 12/19/24 tablet,extended release 24 hr naloxone 4 mg/actuation nasal spray 4 mg intranasal Q2M PRN overdose 11/24/24 12/19/24 nystatin 100,000 unit/gram topical 1 applic topical BID 11/24/24 12/19/24 powder (Nyamyc) ondansetron HCl 4 mg tablet 4 mg PO Q8H 11/24/24 12/19/24 oxycodone-acetaminophen 10 mg-325 1 tab PO Q4H PRN Pain 11/24/24 12/19/24 mg tablet potassium chloride 10 mEq 30 meq PO DAILY 11/24/24 12/19/24 tablet,extended release rivaroxaban 20 mg tablet (Xarelto) 20 mg PO DAILY 11/24/24 12/19/24 rosuvastatin 10 mg tablet 10 mg PO DAILY 11/24/24 12/19/24 sacubitril 24 mg-valsartan 26 mg 1 tab PO BID 11/24/24 12/19/24 tablet spironolactone 50 mg tablet 50 mg PO DAILY 11/24/24 12/19/24 folic acid 1 mg tablet 1 mg PO DAILY 12/19/24 12/19/24 levothyroxine 50 mcg tablet 50 mcg PO QAM 12/19/24 12/19/24 loperamide 2 mg capsule 2 mg PO Q4H PRN Diarrhea 12/19/24 12/19/24 magnesium hydroxide 400 mg/5 mL 30 ml PO DAILY PRN Constipation 12/19/24 12/19/24 oral suspension (Milk of Magnesia) polyethylene glycol 3350 17 17 g PO DAILY PRN bowel management 12/19/24 12/19/24 gram/dose oral powder (Miralax) Allergies Allergy/AdvReac Type Severity Reaction Status Date / Time betamethasone Allergy Unknown Unknown Verified 12/19/24 15:41 budesonide (From Symbicort) Allergy Unknown Verified 12/19/24 15:41 fexofenadine Allergy Unknown Verified 12/19/24 15:41 fluoxetine (From Prozac) Allergy Unknown Verified 12/19/24 15:41 formoterol (From Symbicort) Allergy Unknown Verified 12/19/24 15:41 hydrochlorothiazide Allergy Unknown Verified 12/19/24 15:41 warfarin Allergy Unknown Verified 12/19/24 15:41
--- NOTE | 2024-12-19 10:55 | PC.PHAR ---
Addendum entered by Ariana Marr 12/19/24 15:38: NUrse states pt is full code and last weight 11/30/24 507lbs Original Note: Pt is from [facility] [phone] Unable to get through to them so-faxed request for med list 10:55am 12/19/24
[2024-12-19 11:17] LABS: Basophils % 0.2 %; Eosinophils % 0.1 %; Hematocrit 36.7 % (37-53); Lymphocytes # 1.1 10^3/uL (0.8-4.8); Lymphocytes % 6.2 %; Mean Corpuscular Hemoglobin 32.9 pg (27-33); Mean Corpuscular Volume 109.9 fl (82-101); Mean Platelet Volume 10.8 fL (7.4-10.4); Monocytes # 0.8 10^3/uL (0.2-0.9); Monocytes % 4.4 %; Neutrophils # 16.21 10^3/uL (1.8-7.7); Neutrophils % 88.1 %; Nucleated Red Blood Cells # 0.6 /100WBC; Nucleated Red Blood Cells % 3.2 %; Platelet Count 222 10^3/cmm (157-399); Red Blood Count 3.34 10^6/uL (3.85-5.65); Red Cell Distribution Width 21.8 % (12.1-15.1); White Blood Count 18.37 10^3/uL (3.29-11.43)
[2024-12-19 11:30] LABS: Ketone (Acetest) Serum Negative (Negative)
[2024-12-19 11:37] LABS: Alanine Aminotransferase 43 U/L (0-41); Albumin Level 2.5 g/dL (3.5-5.2); Alkaline Phosphatase 261 U/L (40-130); Anion Gap 25.6 (5-19); Aspartate Amino Transferase 150 U/L (0-40); Blood Urea Nitrogen 53 mg/dL (6-20); Calcium 8.4 mg/dL (8.5-10.5); Carbon Dioxide 24 mmol/L (22-29); Chloride 94 mmol/L (98-107); Globulin 5.9 g/dL (1.3-4.6); Glomerular Filtration Rate 21.5 mL/min (90-130); Glucose 104 mg/dL (65-115); Lipase 27 U/L (13-60); Osmolality Calculated 303 mOsm/kg (285-295); Potassium 4.6 mmol/L (3.5-5.1); Sodium 139 mmol/L (136-145); Total Bilirubin 2.5 mg/dL (0.15-1.2); Total Protein 8.4 g/dL (6.6-8.7)
[2024-12-19 11:37] LABS: Digoxin 1.6 ng/mL (0.6-1.2)
[2024-12-19 11:45] LABS: Creatinine Clr Calc Pharmacy 63.8978
[2024-12-19 11:47] LABS: Lactic Sepsis W/Reflex 10.7 mmol/L (0.5-2.2)
[2024-12-19 11:48] LABS: Troponin(5th) Baseline 252 ng/L (0-15)
[2024-12-19] MEDS: VANCOMYCIN ADD-Vantage 1,000 MG in 0.9% NaCl ADD-Vantage 250 ML 250 MG IV (12:00)
[2024-12-19] MEDS: piperacillin-tazobactam 3.375 GM in sodium chloride 0.9% (plus) 50 ML IV (12:00)
[2024-12-19 12:16] LABS: Influenza A NEGATIVE (Negative); Influenza B NEGATIVE (Negative); Respiratory Syncytial Virus Ce NEGATIVE (Negative); SARS-CoV-2 PCR NEGATIVE (Negative)
[2024-12-19] MEDS: ipratropium-albuterol 3 mL Neb 6 ML INHALATION (12:24)
--- NOTE | 2024-12-19 12:26 | ECG_ITS ---
[employer] [facility] Date: 2024-12-19 Pat Name: Pio Torres Department: Room: Gender: Male [employer] Production Manager: : [id number] Requested By: Evan Bower Order Number: [id number] Reading MD: VANNESA OTERO Measurements Intervals Savage Rate: 80 P: 0 MT: 0 QRS: 233 QRSD: 125 T: 75 QT: 388 QTc: 448 Interpretive Statements ATRIAL FIBRILLATION RIGHT AXIS DEVIATION [QRS AXIS > 100] RIGHT BUNDLE BRANCH BLOCK [120+ ms QRS DURATION, UPRIGHT V1, 40+ ms S IN I/aVL/V4/V5/V6] POSSIBLE ANTERIOR MYOCARDIAL INFARCTION , PROBABLY OLD [30 ms Q WAVE IN V3/V4, OR R < 0.2 mV IN V4] Compared to ECG 12/19/2024 11:18:33 Ventricular premature complex(es) no longer present Aberrant conduction of supraventricular beat(s) no longer present Myocardial infarct finding still present Electronically Signed On 12-21-2024 23:03:09 CDT by VANNESA OTERO [email or web address]
[2024-12-19 12:51] LABS: NT Pro B Type Natriuretic Pept 47516 pg/mL (0-125)
[2024-12-19 12:56] LABS: Glucose Point of Care 104 mg/dL (70-110)
[2024-12-19 12:57] LABS: Bilirubin Urine Negative (Negative); Blood Urine 3+ (Negative); Glucose Urine UA Negative (Normal); Ketones Urine Negative (Negative); Leukocyte Esterase Urine 3+ (Negative); Nitrate Urine Negative (Negative); Protein Urine 2+ (Negative); Specific Gravity, Urine 1.013 (1.005-1.030); Urine Appearance Turbid (CLEAR); Urine Color Dark Yellow (Yellow); pH Urine 5.5 (5-7)
[2024-12-19 13:01] LABS: Reflex Lactate Order REFLEX LACTIC ORDERD
[2024-12-19 13:02] LABS: Add Urine Microscopic? YES; Bacteria Urine 4+ /hpf; Hyaline Casts Urine 40.54 /lpf; Squamous Epithelial Cell Urine 0-5 /hpf (0-5); WBC Urine >100 /hpf (0-5)
[2024-12-19] MEDS: norepinephrine 4 MG/250 ML BAG 7.5 MG IV (13:20)
[2024-12-19 13:23] LABS: Add Urine Culture? Yes; UA Slide Review UA Slide Review Perf
[2024-12-19] MEDS: midazolam 1 mg/mL INJ 2 mL 2 MG IVP (13:32)
--- NOTE | 2024-12-19 13:49 | XRR_ITS ---
PROCEDURE INFORMATION: Exam: XR Chest Exam date and time: 12/19/2024 1:49 PM Age: 49 years old Clinical indication: Device placement; Other: Central line placement; Cough and dyspnea; Additional info: Dyspnea/cough TECHNIQUE: Imaging protocol: Radiologic exam of the chest. Views: 1 view. COMPARISON: CR XR chest 1V portable [id number] 12/19/2024 11:12 AM FINDINGS: Tubes, catheters and devices: Right central line terminates in the proximal right atrium. Lungs: Hypoinflated lungs. No consolidation. Pleural spaces: No apparent pleural effusion. No pneumothorax. Heart/Mediastinum: Cardiomegaly with pulmonary vascular congestion. Bones/joints: Unremarkable. XR/XR chest 1V portable [id number] IMPRESSION: Cardiomegaly with pulmonary vascular congestion.
[2024-12-19 15:01] LABS: Troponin 5 2HR 286.5 ng/L (0-15); Troponin 5 2HR Delta 34.5 ABS# (0-10)
--- NOTE | 2024-12-19 15:08 | PC.NURSE ---
PER SHELBY PHARMACIST, PATIENT HEPARIN DOSE WEIGHT IS MAX DOSE DUE TO 286 KG WEIGHT.
[2024-12-19 15:17] LABS: Lactic Acid level (Lactate) 4.8 mmol/L (0.5-2.2)
[2024-12-19] MEDS: heparin 5,000 unit/mL INJ 1 mL IVP (15:30)
[2024-12-19] MEDS: heparin drip 25,000 UNIT/500 ML PREMIX 57 UNIT IV (15:31)
--- NOTE | 2024-12-19 15:54 | USCV_ITS ---
Pio Torres Age: 49 Gender: M : 1975 Exam Date: 12/19/2024 16:49 Ordering Phys: Evan Georges DO Technologist: ZEINAB Exam Location: [facility] [place] Indication: SoB. Elevated Trop. BP: 99 / 44 HR: Rhythm: Sinus Technical Quality: Very poor MEASUREMENTS (Male / Female) Normal Values 2D ECHO LV Diastolic Diameter PLAX 7.7 cm 4.2 - 5.9 / 3.9 - 5.3 cm IVS Diastolic Thickness 1.2 cm 0.6 - 1.0 / 0.6 - 0.9 cm IVS Systolic Thickness 1.5 cm LVPW Diastolic Thickness 1.0 cm 0.6 - 1.0 / 0.6 - 0.9 cm LVPW Systolic Thickness 1.7 cm LVOT Diameter 2.0 cm LV Ejection Fraction 2D Teich 37.3 % LA Diameter 4.4 cm Aorta at Sinotubular Diameter 3.2 cm M-MODE LA Ao Ratio MM 1.3 AV Cusp Separation MM 1.9 cm FINDINGS Left Ventricle Right Ventricle Right Atrium Left Atrium Mitral Valve Aortic Valve Tricuspid Valve Pulmonic Valve Pericardium Aorta IVC CONCLUSIONS Technically very limited quality echocardiogram because of almost no echo windows. LV systolic function cannot be assessed as cardiac structures are not visualized. Topher Dick MD (Electronically Signed) Final Date: 19 December 2024 17:15 S
--- NOTE | 2024-12-19 16:16 | DCPLANNER ---
Addendum entered by Krysta Granado 12/19/24 16:25: CHRISTOPHER and Fannie send to in [place]- [facility] too big, Original Note: Rosa Maria & Alan at [facility] in [place]- Too big,Bibiana at [facility] too Big, [facility] too big, [facility] Too Big, [facility] too Big, [facility] no beds.
--- NOTE | 2024-12-19 16:23 | PM.CONSULT ---
Providers/Reason For Consult Consulting Physician/Specialty*: Internal Medicine/Maya HERNANDEZ MD Reason for Consult*: Medical management while pt awaits transfer History of Present Illness History of Present Illness Pio Torres is a 49 year old male with past medical history of decubitus ulcers, morbid obesity, congestive heart failure, atrial fibrillation, chronic anticoagulation, residential resident, insulin-dependent diabetes mellitus, major depressive order, generalized muscle weakness, obstructive sleep apnea, pulmonary embolism, moderate persistent asthma, generalized anxiety disorder, COPD, chronic atrial fibrillation who was recently seen in our ER on 11/25/1903/08/2025 at which point he was diagnosed with sepsis secondary to UTI versus respiratory cause. He had lactic acidosis and had severe bilateral lower extremity wounds and decubitus ulcers. Images can be seen in ER note. Our hospital is not equipped to take care of the patient with extremely large body habitus and our imaging modalities only allow for girth up to 30 inches. Patient's girth is 40 inches. He will not fit in our CT scanner or MRI machine. Secondary to large body habitus ultrasound may or may not give us pertinent information. Due to above reasons and for further diagnostic workup and management patient was transferred to [facility] for further management. He was apparently discharged from their back to residential and has again presented to our ER today for altered mental status that started yesterday. Patient has not been able to manage any of his ADLs. Patient is supposed to be on BiPAP however the tube was too long therefore patient was hypoxic initially on arrival but with addition of oxygen oxygenation improved. Initial blood gas obtained: 7.36/44.3/56.5. WBC 18.37, hemoglobin 11.0, platelets 222 creatinine 3.1, anion gap 25.6. Lactic acid 10.7. Total bilirubin 2.5. Liver enzymes elevated AST 150, ALT 43, BNP 47,000. Urinalysis shows 4+ bacteria, 3+ leukocyte esterase. Digoxin level 1.6. Influenza RSV COVID-negative. Seen in room 11. Patient is altered unable to provide any kind of history at this time. Currently on BiPAP. Saturating 90 to 92%. Blood pressure 135/65. Central line has been placed by ER doctor. Hospitalist was requested to consult on patient while ER attempted transfer to higher level of care as our hospital is not equipped to perform diagnostic workup on this patient secondary to large body habitus. Medications/Allergies Home Medications ?Medication ?Instructions ?Recorded ?Confirmed ?Last Taken ?Type acetaminophen 500 mg tablet 1,000 mg PO Q6H PRN Pain 11/24/24 12/19/24 11/24/24 History albuterol sulfate 90 mcg/actuation 2 puff inhalation Q6H PRN 11/24/24 12/19/24 11/24/24 History aerosol inhaler Shortness Of Breath bisacodyl 10 mg rectal suppository 10 mg AR DAILY PRN Constipation 11/24/24 12/19/24 11/24/24 History (Dulcolax (bisacodyl)) bumetanide 2 mg tablet 2 mg PO DAILY 11/24/24 12/19/24 11/24/24 History buspirone 10 mg tablet 10 mg PO TID 11/24/24 12/19/24 11/24/24 History desvenlafaxine succinate 25 mg 25 mg PO DAILY 11/24/24 12/19/24 11/24/24 History tablet,extended release 24 hr (Pristiq) digoxin 125 mcg (0.125 mg) tablet 125 mcg PO DAILY 11/24/24 12/19/24 11/24/24 History ergocalciferol (vitamin D2) 1,250 1,250 mcg PO DAILY 11/24/24 12/19/24 11/24/24 History mcg (50,000 unit) capsule esomeprazole magnesium 40 mg 40 mg PO DAILY 11/24/24 12/19/24 11/24/24 History capsule,delayed release insulin lispro 100 unit/mL See Rx Instructions .Route .COMPLEX 11/24/24 12/19/24 11/24/24 History subcutaneous pen ipratropium 0.5 mg-albuterol 3 mg 3 ml inhalation Q6H PRN Shortness 11/24/24 12/19/24 11/24/24 History (2.5 mg base)/3 mL nebulization Of Breath soln levocetirizine 5 mg tablet 5 mg PO DAILY 11/24/24 12/19/24 11/24/24 History magnesium oxide 400 mg (241.3 mg 400 mg PO BID 11/24/24 12/19/24 11/24/24 History magnesium) tablet (MagOx) metolazone 5 mg tablet 5 mg PO BID 05/03/1312/19/24 11/24/24 History metoprolol succinate 50 mg 50 mg PO DAILY 11/24/24 12/19/24 11/24/24 History tablet,extended release 24 hr naloxone 4 mg/actuation nasal spray 4 mg intranasal Q2M PRN overdose 11/24/24 12/19/24 Unknown History nystatin 100,000 unit/gram topical 1 applic topical BID 11/24/24 12/19/24 11/24/24 History powder (Nyamyc) ondansetron HCl 4 mg tablet 4 mg PO Q8H 11/24/24 12/19/24 Unknown History oxycodone-acetaminophen 10 mg-325 1 tab PO Q4H PRN Pain 11/24/24 12/19/24 11/24/24 History mg tablet potassium chloride 10 mEq 30 meq PO DAILY 11/24/24 12/19/24 11/24/24 History tablet,extended release rivaroxaban 20 mg tablet (Xarelto) 20 mg PO DAILY 11/24/24 12/19/24 11/24/24 History rosuvastatin 10 mg tablet 10 mg PO DAILY 11/24/24 12/19/24 11/24/24 History sacubitril 24 mg-valsartan 26 mg 1 tab PO BID 11/24/24 12/19/24 11/24/24 History tablet spironolactone 50 mg tablet 50 mg PO DAILY 11/24/24 12/19/24 11/24/24 History folic acid 1 mg tablet 1 mg PO DAILY 12/19/24 12/19/24 Unknown History levothyroxine 50 mcg tablet 50 mcg PO QAM 12/19/24 12/19/24 Unknown History loperamide 2 mg capsule 2 mg PO Q4H PRN Diarrhea 12/19/24 12/19/24 Unknown History magnesium hydroxide 400 mg/5 mL 30 ml PO DAILY PRN Constipation 12/19/24 12/19/24 Unknown History oral suspension (Milk of Magnesia) polyethylene glycol 3350 17 17 g PO DAILY PRN bowel management 12/19/24 12/19/24 Unknown History gram/dose oral powder (Miralax) Allergies Allergy/AdvReac Type Severity Reaction Status Date / Time betamethasone Allergy Unknown Unknown Verified 12/19/24 15:41 budesonide (From Symbicort) Allergy Unknown Verified 12/19/24 15:41 fexofenadine Allergy Unknown Verified 12/19/24 15:41 fluoxetine (From Prozac) Allergy Unknown Verified 12/19/24 15:41 formoterol (From Symbicort) Allergy Unknown Verified 12/19/24 15:41 hydrochlorothiazide Allergy Unknown Verified 12/19/24 15:41 warfarin Allergy Unknown Verified 12/19/24 15:41 Current Medications Generic Name Dose Route Start Last Admin Trade Name Freq PRN Reason Stop Dose Admin Heparin Sodium/Sodium Chloride 25,000 unit in 500 mls @ 0 mls/hr 12/19/24 12:00 12/19/24 15:31 Heparin Drip IV 9.97 unit/kg/hr CONT DEBRA 57 mls/hr Protocol Administration Per Protocol Norepinephrine Bitartrate 4 mg in 250 mls @ 0 mls/hr 12/19/24 13:00 12/19/24 14:41 Levophed IV 8 mcg/min .Q0M DEBRA 30 mls/hr Protocol Titration Per Protocol PFSH Acute PFSH: Medical History Decubitus ulcers Morbid obesity Atrial fibrillation Congestive heart failure Vitals/I&O/Wt Last Vital Signs Pulse 79 12/19/24 16:05 Resp 20 H 12/19/24 12:29 BP 111/76 12/19/24 15:31 Pulse Ox 90 12/19/24 16:05 O2 Del Method BiPAP 12/19/24 15:31 FiO2 28 12/19/24 16:05 12/19/24 12/19/24 12/19/24 06:59 14:59 22:59 Intake Total 60.125 / 60.125 Balance 60.125 / 60.125 Weight last 48 hrs Weight 285.763 kg Physical Exam Narrative: General: Obese male laying in bed with BiPAP on. Altered unable to answer any questions. HEENT: Normocephalic, atraumatic, EOMI, on BiPAP at this time. Cardio: Very muffled heart sounds difficult to auscultate secondary to large body habitus Respiratory: Mainly clear to auscultation anteriorly, unable to accurately assess due to very muffled breath sounds due to body habitus and transmitted breath sounds from BiPAP. GI: Abdomen soft, generalized tenderness to palpation, bowel sounds present. Behavior: Altered Extremities: Various lower extremity wounds present. Data 12/19/24 10:59 12/19/24 10:59 Micro: Microbiology 12/19/24 11:11 Blood Culture - Preliminary Blood SPECIMEN COLLECTED 12/19/24 10:59 Blood Culture - Preliminary Blood SPECIMEN COLLECTED A&P Assessment and plan (1) Congestive heart failure: (2) Atrial fibrillation: (3) Morbid obesity: (4) Lactic acidosis: (5) UTI (urinary tract infection): (6) Leukocytosis: (7) Sepsis: (8) Wound of lower extremity: (9) Decubitus ulcers: (10) Hypoxia: (11) Moderate persistent asthma: Plan #Sepsis secondary to UTI versus respiratory cause #Most likely acute on chronic combined systolic diastolic heart failure # NSTEMI #Possible cardiogenic shock #Lactic acidosis #Severe morbid obesity #Decubitus ulcers #Bilateral lower extremity wounds #Chronic congestive heart failure, possibly systolic with EF less than 35% #Atrial fibrillation, rate controlled #Diabetes mellitus, insulin-dependent #Respiratory alkalosis, hypercapnia #Altered mental status # History of pulmonary embolism #Moderate persistent asthma #Hyperlipidemia -We will request records from [facility] as patient may have had imaging studies done at that facility when previously transferred over. ? Digoxin level supratherapeutic. 1.6 today. ? Stop further digoxin doses. ? Consult cardiology. May consider DigiFab antibodies ? MALIK with creatinine 3.1. Real baseline unknown however at previous admission creatinine was normal at 0.9. ? BNP 47,000. Questionable cardiogenic shock? ? Will consult cardiology for input ? Consult nephrology for MALIK ? Lactic acidosis 10.7 on arrival, repeat lactic 4.8. ? Baseline troponin 252, delta troponin 34.5. Most likely high secondary to CKD however we do not have any previous values. ? Patient on Xarelto at residential. ? Start heparin drip. ? EKG does show right bundle branch block. No acute ST changes. ? Hold Entresto, spironolactone, metoprolol succinate. ? Hold bumetanide at this time. Patient did require vasopressors initially on arrival. -3+ blood on urinalysis, 3+ leukocyte esterase, greater than 100 WBCs. 4+ bacteria. Query possibility of kidney stone?. Patient needs CT chest abdomen pelvis without contrast for further assessment at the very least. ? Check ultrasound abdomen, check cardiac echo stat ? Accu-Cheks every 6 hours. Low-dose intensity sliding scale insulin if required. ? Check TSH, blood cultures, urine culture, sputum culture Gram stain ? Order wound care consult ? Will place on empiric broad-spectrum antibiotics vancomycin and cefepime. Renally dose both. ? DuoNeb every 6 hours scheduled ? Check procalcitonin, hemoglobin A1C - Place perez cathether - Repeat cmp, cbc at 7 pm. Full code DVT prophylaxis: On Xarelto at home. Will place on heparin drip while here. Medicine will continue to follow during transition of transfer to higher level of care. PDMP PDMP Reviewed: Not Reviewed Consult Attestations Medical Necessity Statement: Defer to primary Diagnoses Congestive heart failure I50.9 Atrial fibrillation I48.91 Morbid obesity E66.01 Lactic acidosis E87.20 UTI (urinary tract infection) N39.0 Leukocytosis D72.829 Sepsis A41.9 Wound of lower extremity S81.809A Decubitus ulcers L89.90 Hypoxia R09.02 Moderate persistent asthma J45.40
--- NOTE | 2024-12-19 16:26 | ECG_ITS ---
Wantr Test Date: 2024-12-19 Pat Name: Pio Torres Department: Room: Gender: Male [employer]: : [id number] Requested By: Evan Bower Order Number: [id number] Stan MD: VANNESA OTERO Measurements Intervals [place] Rate: 85 P: 0 AR: 0 QRS: 243 QRSD: 136 T: 78 QT: 372 QTc: 445 Interpretive Statements ATRIAL FIBRILLATION WITH ABERRANT CONDUCTION OR VENTRICULAR PREMATURE COMPLEXES INTRAVENTRICULAR CONDUCTION DELAY [130+ ms QRS DURATION] ANTEROLATERAL MYOCARDIAL INFARCTION , OF INDETERMINATE AGE [40+ ms Q WAVE IN I/aVL/V3-V6] Compared to ECG 12/19/2024 13:13:06 Ventricular premature complex(es) now present Aberrant conduction of supraventricular beat(s) now present Intraventricular conduction delay now present Right-axis deviation no longer present Right bundle-branch block no longer present Myocardial infarct finding still present Electronically Signed On 12-21-2024 23:05:29 CDT by VANNESA OTERO [email or web address] [id number]
[2024-12-19 17:10] LABS: ABG PCO2 49.9 mmHg (35-45); ABG PH Result 7.42 (7.35-7.45); Alveolar-Arterial Oxygen Gradi 7.9 mmHg (5-10); Arterial Blood Gas Hematocrit 36.5 % (42-52); Base Excess ABG 6.4 mmol/L (-2.0-2.0); Blood Gas Allen Test Pos; Blood Gas Operator Identificat CAK; Blood Gas Sample Site Brachial, left; Blood Gas Sample Type Arterial; Carboxyhemoglobin 1.8 %THgb (0.4-20.1); HGB O2 Sat 91.2 % (95-100); Ionized Calcium Level - ABG 1.1 mmol/L (1.1-1.4); Methemoglobin 0.9 % (0.4-1.5); Oxygen Device BIPAP; Oxygen Saturation ABG 93.7; PO2 FiO2 Ratio Arterial Blood 275; Potassium Level - ABG 4.1 mmol/L (3.5-5.0); Total Hemoglobin 11.9 g/dL (14-18)
[2024-12-19 17:33] LABS: Procalcitonin 0.68 ng/mL (0-0.5); Thyroid Stimulating Hormone 9.06 uIU/mL (0.27-4.20)
--- NOTE | 2024-12-19 17:53 | PM.CONSULT ---
Providers/Reason For Consult Consulting Physician/Specialty*: General Surgery Reason for Consult*: Venous ulceration of lower extremities decubitus ulcers History of Present Illness History of Present Illness Pio Torres is a 49 year old male Who presents with sepsis likely due to UTI, patient is superobese with a BMI of 93. Appears critically ill currently in the ER on BiPAP. Not following commands not answering questions for me. I was consulted for evaluation of ulcerations lower extremities and possible decubitus ulcer as a possible source of patient's symptoms. Review of Systems General: Reports: ROS unobtainable due to medical condition and ROS unobtainable due to mental status Medications/Allergies Home Medications ?Medication ?Instructions ?Recorded ?Confirmed ?Last Taken ?Type acetaminophen 500 mg tablet 1,000 mg PO Q6H PRN Pain 11/24/24 12/19/24 11/24/24 History albuterol sulfate 90 mcg/actuation 2 puff inhalation Q6H PRN 11/24/24 12/19/24 11/24/24 History aerosol inhaler Shortness Of Breath bisacodyl 10 mg rectal suppository 10 mg HI DAILY PRN Constipation 11/24/24 12/19/24 11/24/24 History (Dulcolax (bisacodyl)) bumetanide 2 mg tablet 2 mg PO DAILY 11/24/24 12/19/24 11/24/24 History buspirone 10 mg tablet 10 mg PO TID 11/24/24 12/19/24 11/24/24 History desvenlafaxine succinate 25 mg 25 mg PO DAILY 11/24/24 12/19/24 11/24/24 History tablet,extended release 24 hr (Pristiq) digoxin 125 mcg (0.125 mg) tablet 125 mcg PO DAILY 11/24/24 12/19/24 11/24/24 History ergocalciferol (vitamin D2) 1,250 1,250 mcg PO DAILY 11/24/24 12/19/24 11/24/24 History mcg (50,000 unit) capsule esomeprazole magnesium 40 mg 40 mg PO DAILY 11/24/24 12/19/24 11/24/24 History capsule,delayed release insulin lispro 100 unit/mL See Rx Instructions .Route .COMPLEX 11/24/24 12/19/24 11/24/24 History subcutaneous pen ipratropium 0.5 mg-albuterol 3 mg 3 ml inhalation Q6H PRN Shortness 11/24/24 12/19/24 11/24/24 History (2.5 mg base)/3 mL nebulization Of Breath soln levocetirizine 5 mg tablet 5 mg PO DAILY 11/24/24 12/19/24 11/24/24 History magnesium oxide 400 mg (241.3 mg 400 mg PO BID 11/24/24 12/19/24 11/24/24 History magnesium) tablet (MagOx) metolazone 5 mg tablet 5 mg PO BID 11/24/24 12/19/24 11/24/24 History metoprolol succinate 50 mg 50 mg PO DAILY 11/24/24 12/19/24 11/24/24 History tablet,extended release 24 hr naloxone 4 mg/actuation nasal spray 4 mg intranasal Q2M PRN overdose 11/24/24 12/19/24 Unknown History nystatin 100,000 unit/gram topical 1 applic topical BID 11/24/24 12/19/24 11/24/24 History powder (Nyamyc) ondansetron HCl 4 mg tablet 4 mg PO Q8H 11/24/24 12/19/24 Unknown History oxycodone-acetaminophen 10 mg-325 1 tab PO Q4H PRN Pain 11/24/24 12/19/24 11/24/24 History mg tablet potassium chloride 10 mEq 30 meq PO DAILY 11/24/24 12/19/24 11/24/24 History tablet,extended release rivaroxaban 20 mg tablet (Xarelto) 20 mg PO DAILY 11/24/24 12/19/24 11/24/24 History rosuvastatin 10 mg tablet 10 mg PO DAILY 11/24/24 12/19/24 11/24/24 History sacubitril 24 mg-valsartan 26 mg 1 tab PO BID 11/24/24 12/19/24 11/24/24 History tablet spironolactone 50 mg tablet 50 mg PO DAILY 11/24/24 12/19/24 11/24/24 History folic acid 1 mg tablet 1 mg PO DAILY 12/19/24 12/19/24 Unknown History levothyroxine 50 mcg tablet 50 mcg PO QAM 12/19/24 12/19/24 Unknown History loperamide 2 mg capsule 2 mg PO Q4H PRN Diarrhea 12/19/24 12/19/24 Unknown History magnesium hydroxide 400 mg/5 mL 30 ml PO DAILY PRN Constipation 12/19/24 12/19/24 Unknown History oral suspension (Milk of Magnesia) polyethylene glycol 3350 17 17 g PO DAILY PRN bowel management 12/19/24 12/19/24 Unknown History gram/dose oral powder (Miralax) Allergies Allergy/AdvReac Type Severity Reaction Status Date / Time betamethasone Allergy Unknown Unknown Verified 12/19/24 15:41 budesonide (From Symbicort) Allergy Unknown Verified 12/19/24 15:41 fexofenadine Allergy Unknown Verified 12/19/24 15:41 fluoxetine (From Prozac) Allergy Unknown Verified 12/19/24 15:41 formoterol (From Symbicort) Allergy Unknown Verified 12/19/24 15:41 hydrochlorothiazide Allergy Unknown Verified 12/19/24 15:41 warfarin Allergy Unknown Verified 12/19/24 15:41 Current Medications Generic Name Dose Route Start Last Admin Trade Name Freq PRN Reason Stop Dose Admin Heparin Sodium/Sodium Chloride 25,000 unit in 500 mls @ 0 mls/hr 12/19/24 12:00 12/19/24 15:31 Heparin Drip IV 9.97 unit/kg/hr CONT DEBRA 57 mls/hr Protocol Administration Per Protocol Norepinephrine Bitartrate 4 mg in 250 mls @ 0 mls/hr 12/19/24 13:00 12/19/24 14:41 Levophed IV 8 mcg/min .Q0M DEBRA 30 mls/hr Protocol Titration Per Protocol PFSH Acute PFSH: Medical History Decubitus ulcers Morbid obesity Atrial fibrillation Congestive heart failure Vitals/I&O/Wt Last Vital Signs Pulse 83 12/19/24 17:13 Resp 20 H 12/19/24 12:29 BP 127/59 12/19/24 17:13 Pulse Ox 93 12/19/24 17:13 O2 Del Method BiPAP 12/19/24 17:13 FiO2 28 12/19/24 16:05 12/19/24 12/19/24 12/19/24 06:59 14:59 22:59 Intake Total 60.125 / 60.125 Balance 60.125 / 60.125 Weight last 48 hrs Weight 630 lb Physical Exam Narrative: Patient appears to be disoriented, somnolent. Abdominal examination is not reliable as patient appears to react to all stimuli with withdrawing. I evaluated bilateral lower extremities in the left lower extremity the level of the leg there is some superficial ulcerations without active signs of infection that are most likely consistent with vascular insufficiency. Unfortunately cannot be evaluated mom in the decubitus ulcer as there is no available health return the patient, I can reevaluate the patient once he is moved to the ICU. Urinary Catheter Management: [place]: Cath Placed During This Visit: no Data 12/19/24 10:59 12/19/24 10:59 Micro: Microbiology 12/19/24 11:11 Blood Culture - Preliminary Blood SPECIMEN COLLECTED 12/19/24 10:59 Blood Culture - Preliminary Blood SPECIMEN COLLECTED A&P Assessment and plan (1) Morbid obesity: (2) Lactic acidosis: (3) UTI (urinary tract infection): (4) Sepsis: (5) Wound of lower extremity: (6) Decubitus ulcers: Plan This is a 49-year-old male with multiple medical comorbidities who is being admitted for sepsis likely due to UTI. Patient is superobese along with a BMI of 93, unable to provide any additional diagnostic workup due to patient body habitus. He is pending transfer to [facility]. I have been asked to evaluate his ulcerations of lower extremity as well as possible decubitus ulcer, I have done my evaluation at the bedside this wounds are not actionable from the surgical standpoint at this time. 1 skin covered with several firm and a dry dressing for protection but do not require surgical debridement at this time. Patient can continue to follow-up with trading specialist as outpatient or once transferred to higher level of care. General surgery will remain available PDMP PDMP Reviewed: Not Reviewed Coding Level of Care Code 21994 Diagnoses Morbid obesity E66.01 Lactic acidosis E87.20 UTI (urinary tract infection) N39.0 Sepsis A41.9 Wound of lower extremity S81.809A Decubitus ulcers L89.90
[2024-12-19] MEDS: vancomycin 2,000 MG/400 ML PIGGYBACK 200 MG IV (18:21)
[2024-12-19] MEDS: cefepime 1,000 mg SDV 1000 MG IVP (18:21)
[2024-12-19] MEDS: norepinephrine 4 MG/250 ML BAG 45 MG IV (20:00)
[2024-12-19 20:49] LABS: Estmated Average Glucose 126
[2024-12-19 20:54] LABS: Free T4 Free Thyroxine 0.95 ng/dL (0.82-1.77)
--- NOTE | 2024-12-19 20:55 | PHA.VACGOAL ---
Vancomycin Goal - Goal Vancomycin Goal:: 15-20 mg/L Vancomycin Indication:: Other (SEPSIS) - Therapy Day of therpy:: Day [1]of [] . Actual body weight (kg): 285.763 kg - Data Labs: WBC 18.37 10^3/uL (3.29-11.43) H 12/19/24 10:59 RBC 3.34 10^6/uL (3.85-5.65) L 12/19/24 10:59 Hgb 11.00 g/dL (11.27-16.99) L 12/19/24 10:59 Hct 36.7 % (37-53) L 12/19/24 10:59 MCV 109.9 fl (82-101) H 12/19/24 10:59 MCH 32.9 pg (27-33) 12/19/24 10:59 MCHC 30.0 g/dL (30-55) 12/19/24 10:59 RDW 21.8 % (12.1-15.1) H 12/19/24 10:59 Sodium 139 mmol/L (136-145) 12/19/24 10:59 Potassium 4.6 mmol/L (3.5-5.1) 12/19/24 10:59 Chloride 94 mmol/L (98-107) L 12/19/24 10:59 Carbon Dioxide 24 mmol/L (22-29) 12/19/24 10:59 Anion Gap 25.6 (5-19) H 12/19/24 10:59 BUN 53 mg/dL (6-20) H 12/19/24 10:59 Creatinine 3.1 mg/dL (0.7-1.2) H 12/19/24 10:59 GFR Calculation 21.5 mL/min (90-130) L 12/19/24 10:59 Treatment plan:: new consult Regimen:: New start vancomycin for sepsis. Received 1000 mg dose in ER. No prior history of vancomycin found. Additional 2000 mg dose ordered. Patient's baseline Scr from 11/24/2024 was 0.9 mg/dL now up to 3.1 mg/dL. Will start patient on pulse dosing post load dose. Vancomycin level ordered for 12/20 @1100.
--- NOTE | 2024-12-19 21:03 | PM.CONSULT ---
Providers/Reason For Consult Consulting Physician/Specialty*: kommana/Nephrology Reason for Consult*: MALIK Attending Physician: Maya Wellington MD History of Present Illness History of Present Illness Pio Torres is a 49 year old male Patient is a 49-year-old male with past medical history of morbid obesity, congestive cardiac failure, A-fib, diabetes type 2 depression, decubitus wounds history of PE anxiety, COPD was recently evaluated in the ER on 11/24/2024 but was transferred to [facility] due to large body habitus and unable to perform any imaging studies. Patient was recently discharged back to the long-term. He was sent to the ER today due to altered mental status. Lab data significant for MALIK with a creatinine of 3.1. Baseline creatinine was 0.9. Also noted to have lactic acidosis with a lactic acid level of 10.7, WBC count 18,000, UA was consistent with UTI. Patient currently is on Levophed 8 mcg and on BiPAP with 25% FiO2. Review of Systems Narrative: unable to obtain Medications/Allergies Home Medications ?Medication ?Instructions ?Recorded ?Confirmed ?Last Taken ?Type acetaminophen 500 mg tablet 1,000 mg PO Q6H PRN Pain 11/24/24 12/19/24 11/24/24 History albuterol sulfate 90 mcg/actuation 2 puff inhalation Q6H PRN 11/24/24 12/19/24 11/24/24 History aerosol inhaler Shortness Of Breath bisacodyl 10 mg rectal suppository 10 mg FL DAILY PRN Constipation 11/24/24 12/19/24 11/24/24 History (Dulcolax (bisacodyl)) bumetanide 2 mg tablet 2 mg PO DAILY 11/24/24 12/19/24 11/24/24 History buspirone 10 mg tablet 10 mg PO TID 11/24/24 12/19/24 11/24/24 History desvenlafaxine succinate 25 mg 25 mg PO DAILY 11/24/24 12/19/24 11/24/24 History tablet,extended release 24 hr (Pristiq) digoxin 125 mcg (0.125 mg) tablet 125 mcg PO DAILY 11/24/24 12/19/24 11/24/24 History ergocalciferol (vitamin D2) 1,250 1,250 mcg PO DAILY 11/24/24 12/19/24 11/24/24 History mcg (50,000 unit) capsule esomeprazole magnesium 40 mg 40 mg PO DAILY 11/24/24 12/19/24 11/24/24 History capsule,delayed release insulin lispro 100 unit/mL See Rx Instructions .Route .COMPLEX 11/24/24 12/19/24 11/24/24 History subcutaneous pen ipratropium 0.5 mg-albuterol 3 mg 3 ml inhalation Q6H PRN Shortness 11/24/24 12/19/24 11/24/24 History (2.5 mg base)/3 mL nebulization Of Breath soln levocetirizine 5 mg tablet 5 mg PO DAILY 11/24/24 12/19/24 11/24/24 History magnesium oxide 400 mg (241.3 mg 400 mg PO BID 11/24/24 12/19/24 11/24/24 History magnesium) tablet (MagOx) metolazone 5 mg tablet 5 mg PO BID 11/24/24 12/19/24 11/24/24 History metoprolol succinate 50 mg 50 mg PO DAILY 11/24/24 12/19/24 11/24/24 History tablet,extended release 24 hr naloxone 4 mg/actuation nasal spray 4 mg intranasal Q2M PRN overdose 11/24/24 12/19/24 Unknown History nystatin 100,000 unit/gram topical 1 applic topical BID 11/24/24 12/19/24 11/24/24 History powder (Nyamyc) ondansetron HCl 4 mg tablet 4 mg PO Q8H 11/24/24 12/19/24 Unknown History oxycodone-acetaminophen 10 mg-325 1 tab PO Q4H PRN Pain 11/24/24 12/19/24 11/24/24 History mg tablet potassium chloride 10 mEq 30 meq PO DAILY 11/24/24 12/19/24 11/24/24 History tablet,extended release rivaroxaban 20 mg tablet (Xarelto) 20 mg PO DAILY 11/24/24 12/19/24 11/24/24 History rosuvastatin 10 mg tablet 10 mg PO DAILY 11/24/24 12/19/24 11/24/24 History sacubitril 24 mg-valsartan 26 mg 1 tab PO BID 11/24/24 12/19/24 11/24/24 History tablet spironolactone 50 mg tablet 50 mg PO DAILY 11/24/24 12/19/24 11/24/24 History folic acid 1 mg tablet 1 mg PO DAILY 12/19/24 12/19/24 Unknown History levothyroxine 50 mcg tablet 50 mcg PO QAM 12/19/24 12/19/24 Unknown History loperamide 2 mg capsule 2 mg PO Q4H PRN Diarrhea 12/19/24 12/19/24 Unknown History magnesium hydroxide 400 mg/5 mL 30 ml PO DAILY PRN Constipation 12/19/24 12/19/24 Unknown History oral suspension (Milk of Magnesia) polyethylene glycol 3350 17 17 g PO DAILY PRN bowel management 12/19/24 12/19/24 Unknown History gram/dose oral powder (Miralax) Allergies Allergy/AdvReac Type Severity Reaction Status Date / Time betamethasone Allergy Unknown Unknown Verified 12/19/24 15:41 budesonide (From Symbicort) Allergy Unknown Verified 12/19/24 15:41 fexofenadine Allergy Unknown Verified 12/19/24 15:41 fluoxetine (From Prozac) Allergy Unknown Verified 12/19/24 15:41 formoterol (From Symbicort) Allergy Unknown Verified 12/19/24 15:41 hydrochlorothiazide Allergy Unknown Verified 12/19/24 15:41 warfarin Allergy Unknown Verified 12/19/24 15:41 Current Medications Generic Name Dose Route Start Last Admin Trade Name Freq PRN Reason Stop Dose Admin Cefepime HCl 1,000 mg 12/19/24 17:00 12/19/24 18:21 Cefepime 1,000 Mg Sdv IVP 1,000 mg Q12H DEBRA Administration Protocol Heparin Sodium/Sodium Chloride 25,000 unit in 500 mls @ 0 mls/hr 12/19/24 12:00 12/19/24 15:31 Heparin Drip IV 9.97 unit/kg/hr CONT DEBRA 57 mls/hr Protocol Administration Per Protocol Norepinephrine Bitartrate 4 mg in 250 mls @ 0 mls/hr 12/19/24 13:00 12/19/24 19:22 Levophed IV 12 mcg/min .Q0M DEBRA 45 mls/hr Protocol Titration Per Protocol PFSH Acute PFSH: Medical History Decubitus ulcers Morbid obesity Atrial fibrillation Congestive heart failure Vitals/I&O/Wt Last Vital Signs Pulse 64 12/19/24 20:12 Resp 19 H 12/19/24 18:17 BP 107/71 12/19/24 18:17 Pulse Ox 91 12/19/24 20:12 O2 Del Method BiPAP 12/19/24 18:17 FiO2 28 12/19/24 20:12 12/19/24 12/19/24 12/19/24 06:59 14:59 22:59 Intake Total 60.125 / 60.125 2261.5 / 2321.625 Balance 60.125 / 60.125 2261.5 / 2321.625 Weight last 48 hrs Weight 285.763 kg Physical Exam Narrative: On BiPAP, on pressors, Morbidly obese male, no distress S1-S2 regular rate and rhythm per report Lungs with decreased bilateral breath sounds per report Abdomen obese soft nontender per report Has edema Urinary Catheter Management: [place]: Cath Placed During This Visit: no Reason for Continuing Indwelling Catheter: Accurate Measurement of Urinary Output in Critically Ill Patients Data 12/19/24 10:59 12/19/24 10:59 Micro: Microbiology 12/19/24 11:11 Blood Culture - Preliminary Blood SPECIMEN COLLECTED 12/19/24 10:59 Blood Culture - Preliminary Blood SPECIMEN COLLECTED A&P Assessment and plan (1) MALIK (acute kidney injury): Plan 1. Acute kidney injury: Likely ATN in the setting of acute infection, patient currently on pressors, has volume overload/pulmonary edema. - Added IV albumin, wean Levophed as tolerated, - Continue to monitor closely overnight, if renal function continues to get worse and remains oliguric-will recommend HD catheter placement tomorrow for possible initiation of CRRT/HD. - Patient is currently awaiting transfer to [facility] (due to large body habitus and unable to perform imaging studies:) - Holding Entresto and Aldactone in Bumex for now 2. Sepsis-lactic acidosis, due to sepsis likely from UTI, on vancomycin and cefepime 3. Morbid obesity with decubitus ulcers 4 cardiomyopathy ,, diuretics on hold temporarily Patient evaluated using audiovisual cart. Time spent 40 minutes. PDMP PDMP Reviewed: Not Reviewed Coding Level of Care Code Acute Code for Chg Fwd Diagnoses MALIK (acute kidney injury) N17.9
[2024-12-19 21:20] LABS: Basophils % 0.2 %; Eosinophils # 0.1 10^3/uL (0.0-0.8); Eosinophils % 0.3 %; Hematocrit 36.3 % (37-53); Lymphocytes # 1.4 10^3/uL (0.8-4.8); Lymphocytes % 7.4 %; Mean Corpuscular HGB Conc 30.6 g/dL (30-55); Mean Corpuscular Hemoglobin 32.2 pg (27-33); Mean Corpuscular Volume 105.2 fl (82-101); Mean Platelet Volume 10.5 fL (7.4-10.4); Monocytes # 1.1 10^3/uL (0.2-0.9); Neutrophils # 16.12 10^3/uL (1.8-7.7); Neutrophils % 85.2 %; Nucleated Red Blood Cells # 0.6 /100WBC; Nucleated Red Blood Cells % 3.2 %; Platelet Count 234 10^3/cmm (157-399); Red Blood Count 3.45 10^6/uL (3.85-5.65); Red Cell Distribution Width 21.5 % (12.1-15.1)
--- NOTE | 2024-12-19 21:35 | PM.CONSULT ---
Providers/Reason For Consult Consulting Physician/Specialty*: Topher Dick MD/ Cardiology Reason for Consult*: Troponin elevation/? congestive heart failure Requesting Physician: Dr Wellington Attending Physician: Maya Wellington MD History of Present Illness History of Present Illness Pio Torres is a 49 year old male with limited available history as brought with altered mental status. Cardiology was consulted as troponins are elevated. Also is hypotensive. Patient is not responding appropriately. On BiPAP. Documented BMI of 93. EKG shows rate controlled atrial fibrillation. No history available. Review of Systems General: Reports: ROS unobtainable due to mental status Medications/Allergies Home Medications ?Medication ?Instructions ?Recorded ?Confirmed ?Last Taken ?Type acetaminophen 500 mg tablet 1,000 mg PO Q6H PRN Pain 11/24/24 12/19/24 11/24/24 History albuterol sulfate 90 mcg/actuation 2 puff inhalation Q6H PRN 11/24/24 12/19/24 11/24/24 History aerosol inhaler Shortness Of Breath bisacodyl 10 mg rectal suppository 10 mg [place] DAILY PRN Constipation 11/24/24 12/19/24 11/24/24 History (Dulcolax (bisacodyl)) bumetanide 2 mg tablet 2 mg PO DAILY 11/24/24 12/19/24 11/24/24 History buspirone 10 mg tablet 10 mg PO TID 11/24/24 12/19/24 11/24/24 History desvenlafaxine succinate 25 mg 25 mg PO DAILY 11/24/24 12/19/24 11/24/24 History tablet,extended release 24 hr (Pristiq) digoxin 125 mcg (0.125 mg) tablet 125 mcg PO DAILY 11/24/24 12/19/24 11/24/24 History ergocalciferol (vitamin D2) 1,250 1,250 mcg PO DAILY 11/24/24 12/19/24 11/24/24 History mcg (50,000 unit) capsule esomeprazole magnesium 40 mg 40 mg PO DAILY 11/24/24 12/19/24 11/24/24 History capsule,delayed release insulin lispro 100 unit/mL See Rx Instructions .Route .COMPLEX 11/24/24 12/19/24 11/24/24 History subcutaneous pen ipratropium 0.5 mg-albuterol 3 mg 3 ml inhalation Q6H PRN Shortness 11/24/24 12/19/24 11/24/24 History (2.5 mg base)/3 mL nebulization Of Breath soln levocetirizine 5 mg tablet 5 mg PO DAILY 11/24/24 12/19/24 11/24/24 History magnesium oxide 400 mg (241.3 mg 400 mg PO BID 11/24/24 12/19/24 11/24/24 History magnesium) tablet (MagOx) metolazone 5 mg tablet 5 mg PO BID 11/24/24 12/19/24 11/24/24 History metoprolol succinate 50 mg 50 mg PO DAILY 11/24/24 12/19/24 11/24/24 History tablet,extended release 24 hr naloxone 4 mg/actuation nasal spray 4 mg intranasal Q2M PRN overdose 11/24/24 12/19/24 Unknown History nystatin 100,000 unit/gram topical 1 applic topical BID 11/24/24 12/19/24 11/24/24 History powder ([facility]) ondansetron HCl 4 mg tablet 4 mg PO Q8H 11/24/24 12/19/24 Unknown History oxycodone-acetaminophen 10 mg-325 1 tab PO Q4H PRN Pain 11/24/24 12/19/24 11/24/24 History mg tablet potassium chloride 10 mEq 30 meq PO DAILY 11/24/24 12/19/24 11/24/24 History tablet,extended release rivaroxaban 20 mg tablet (Xarelto) 20 mg PO DAILY 11/24/24 12/19/24 11/24/24 History rosuvastatin 10 mg tablet 10 mg PO DAILY 11/24/24 12/19/24 11/24/24 History sacubitril 24 mg-valsartan 26 mg 1 tab PO BID 11/24/24 12/19/24 11/24/24 History tablet spironolactone 50 mg tablet 50 mg PO DAILY 11/24/24 12/19/24 11/24/24 History folic acid 1 mg tablet 1 mg PO DAILY 12/19/24 12/19/24 Unknown History levothyroxine 50 mcg tablet 50 mcg PO QAM 12/19/24 12/19/24 Unknown History loperamide 2 mg capsule 2 mg PO Q4H PRN Diarrhea 12/19/24 12/19/24 Unknown History magnesium hydroxide 400 mg/5 mL 30 ml PO DAILY PRN Constipation 12/19/24 12/19/24 Unknown History oral suspension (Milk of Magnesia) polyethylene glycol 3350 17 17 g PO DAILY PRN bowel management 12/19/24 12/19/24 Unknown History gram/dose oral powder (Miralax) Allergies Allergy/AdvReac Type Severity Reaction Status Date / Time betamethasone Allergy Unknown Unknown Verified 12/19/24 15:41 budesonide (From Symbicort) Allergy Unknown Verified 12/19/24 15:41 fexofenadine Allergy Unknown Verified 12/19/24 15:41 fluoxetine (From Prozac) Allergy Unknown Verified 12/19/24 15:41 formoterol (From Symbicort) Allergy Unknown Verified 12/19/24 15:41 hydrochlorothiazide Allergy Unknown Verified 12/19/24 15:41 warfarin Allergy Unknown Verified 12/19/24 15:41 Current Medications Generic Name Dose Route Start Last Admin Trade Name Freq PRN Reason Stop Dose Admin Cefepime HCl 1,000 mg 12/19/24 17:00 12/19/24 18:21 Cefepime 1,000 Mg Sdv IVP 1,000 mg Q12H DEBRA Administration Protocol Heparin Sodium/Sodium Chloride 25,000 unit in 500 mls @ 0 mls/hr 12/19/24 12:00 12/19/24 15:31 Heparin Drip IV 9.97 unit/kg/hr CONT DEBRA 57 mls/hr Protocol Administration Per Protocol Norepinephrine Bitartrate 4 mg in 250 mls @ 0 mls/hr 12/19/24 13:00 12/19/24 21:06 Levophed IV 8 mcg/min .Q0M DEBRA 30 mls/hr Protocol Titration Per Protocol PFSH Acute PFSH: Medical History Decubitus ulcers Morbid obesity Atrial fibrillation Congestive heart failure Vitals/I&O/Wt Last Vital Signs Pulse 64 12/19/24 20:12 Resp 19 H 12/19/24 18:17 BP 107/71 12/19/24 18:17 Pulse Ox 91 12/19/24 20:12 O2 Del Method BiPAP 06/02/25 20:36 FiO2 28 12/19/24 20:12 12/19/24 12/19/24 12/19/24 06:59 14:59 22:59 Intake Total 60.125 / 60.125 2985.0 / 3045.125 Balance 60.125 / 60.125 2985.0 / 3045.125 Weight last 48 hrs Weight 467 lb 6.4 oz Weight 630 lb Physical Exam Narrative: GENERAL: Patient is drowsy. Morbid obesity HEART: Irregularly irregular LUNGS: Diminished air entry CENTRAL NERVOUS SYSTEM: Grossly nonfocal. EXTREMITIES: Lower extremities with signficant edema. Urinary Catheter Management: [place]: Cath Placed During This Visit: no Reason for Continuing Indwelling Catheter: Accurate Measurement of Urinary Output in Critically Ill Patients Data 12/20/24 03:33 12/20/24 03:33 Micro: Microbiology 12/19/24 11:11 Blood Culture - Preliminary Blood SPECIMEN COLLECTED 12/19/24 10:59 Blood Culture - Preliminary Blood SPECIMEN COLLECTED A&P Assessment and plan (1) Atrial fibrillation: (2) Congestive heart failure: (3) Sepsis: (4) Wound of lower extremity: (5) Morbid obesity: (6) Shock: Plan Patient cannot give any history. Unfortunately because of body habitus echocardiogram could not determine LV function or valvular disease. Patient is in shock. Likely septic given elevated WBC count. May have congestive heart failure component. Lactic acid is elevated. Continue Levophed. Continue heparin. Troponin elevation likely secondary to demand ischemia in setting of shock and MALIK. Obtain records from [facility] as apparently prior care was there. Thank you for involving us with care of this patient. We will continue to follow. Please call with questions. PDMP PDMP Reviewed: Not Reviewed Consult Attestations Medical Necessity Statement: Care expected to cross 2 midnights. Coding Level of Care Code Acute Code for g Fwd Diagnoses Atrial fibrillation I48.91 Congestive heart failure I50.9 Sepsis A41.9 Wound of lower extremity S81.809A Morbid obesity E66.01 Shock R57.9
[2024-12-19 21:43] LABS: Alanine Aminotransferase 60 U/L (0-41); Albumin Level 2.5 g/dL (3.5-5.2); Alkaline Phosphatase 261 U/L (40-130); Aspartate Amino Transferase 221 U/L (0-40); Blood Urea Nitrogen 56 mg/dL (6-20); Carbon Dioxide 30 mmol/L (22-29); Chloride 96 mmol/L (98-107); Creatinine Clr Calc Pharmacy 50.2489; Globulin 6.2 g/dL (1.3-4.6); Glomerular Filtration Rate 20.7 mL/min (90-130); Glucose 149 mg/dL (65-115); Osmolality Calculated 302 mOsm/kg (285-295); Sodium 137 mmol/L (136-145); Total Bilirubin 2.3 mg/dL (0.15-1.2); Total Protein 8.7 g/dL (6.6-8.7)
[2024-12-19 21:46] LABS: Lactic Sepsis W/Reflex 3.1 mmol/L (0.5-2.2)
[2024-12-19 21:53] LABS: Troponin 5 6HR 375.2 ng/L (0-15); Troponin 5 6HR Delta 123.2 ng/L (0-12)
[2024-12-19] MEDS: albumin 25 G/100 ML BAG 60 G IV (21:53)
--- NOTE | 2024-12-19 21:54 | PC.NURSE ---
Albumin Received telephone order from Dr Terrell to give ordered albumin as emergency. Patient unable to give consent for blood products due to altered mental status. Attempted to contact patient's son Michele to obtain consent and was unable. Albumin administered per Dr Terrell.
[2024-12-19 22:00] LABS: Partial Thromboplastin Time > 250.0 SECONDS (23.9-36.7)
[2024-12-19 22:45] LABS: Partial Thromboplastin Time > 250.0 SECONDS (23.9-36.7)
[2024-12-19 23:14] LABS: Reflex Lactate Order REFLEX LACTIC ORDERD
[2024-12-20] VITALS (85 sets, daily range): BP systolic 71–164; BP diastolic 39–102; PULSE 49–92; RESP 14–31; TEMP 35.8–36.6; O2SAT 80–100
[2024-12-20 00:08] LABS: Partial Thromboplastin Time > 250.0 SECONDS (23.9-36.7)
[2024-12-20] MEDS: FUROsemide 10 mg/mL SDV 4mL 40 MG IVP ×2 (00:09→17:16)
[2024-12-20 01:04] LABS: Lactic Acid level (Lactate) 2.9 mmol/L (0.5-2.2)
[2024-12-20 01:30] LABS: Partial Thromboplastin Time > 250.0 SECONDS (23.9-36.7)
[2024-12-20 03:51] LABS: Basophils % 0.1 %; Eosinophils % 0.3 %; Lymphocytes # 1.1 10^3/uL (0.8-4.8); Lymphocytes % 8.1 %; Mean Corpuscular HGB Conc 30.6 g/dL (30-55); Mean Corpuscular Hemoglobin 32.7 pg (27-33); Mean Corpuscular Volume 106.8 fl (82-101); Mean Platelet Volume 10.6 fL (7.4-10.4); Monocytes # 0.7 10^3/uL (0.2-0.9); Monocytes % 5.4 %; Neutrophils # 11.82 10^3/uL (1.8-7.7); Neutrophils % 85.4 %; Nucleated Red Blood Cells # 0.2 /100WBC; Nucleated Red Blood Cells % 1.2 %; Platelet Count 170 10^3/cmm (157-399); Red Blood Count 3.09 10^6/uL (3.85-5.65); Red Cell Distribution Width 21.6 % (12.1-15.1); White Blood Count 13.82 10^3/uL (3.29-11.43)
[2024-12-20 04:16] LABS: Partial Thromboplastin Time 90.7 SECONDS (23.9-36.7)
[2024-12-20 04:18] LABS: Alanine Aminotransferase 56 U/L (0-41); Albumin Level 2.5 g/dL (3.5-5.2); Alkaline Phosphatase 223 U/L (40-130); Anion Gap 14.7 (5-19); Aspartate Amino Transferase 182 U/L (0-40); Blood Urea Nitrogen 60 mg/dL (6-20); Calcium 8.1 mg/dL (8.5-10.5); Carbon Dioxide 32 mmol/L (22-29); Chloride 98 mmol/L (98-107); Creatinine Clr Calc Pharmacy 45.9419; Globulin 5.8 g/dL (1.3-4.6); Glomerular Filtration Rate 18.7 mL/min (90-130); Glucose 121 mg/dL (65-115); Magnesium 1.9 mg/dL (1.7-2.3); Osmolality Calculated 310 mOsm/kg (285-295); Potassium 3.7 mmol/L (3.5-5.1); Sodium 141 mmol/L (136-145); Total Bilirubin 2.1 mg/dL (0.15-1.2); Total Protein 8.3 g/dL (6.6-8.7)
[2024-12-20] MEDS: albumin 25 G/100 ML BAG 60 G IV ×2 (05:37→13:54)
[2024-12-20] MEDS: cefepime 1,000 mg SDV 1000 MG IVP (05:38)
[2024-12-20] MEDS: heparin drip 25,000 UNIT/500 ML PREMIX 49 UNIT IV (07:33)
--- NOTE | 2024-12-20 08:02 | PC.NURSE ---
Patient's heart rate drops to the low 30s. Dr. Frias was notified and she ordered a stat Digoxin level.
[2024-12-20 08:03] LABS: Bacillus cereus group Not Detected (NOT DETECT); Bacillus subtillis group Not Detected (NOT DETECT); Corynebacterium Not Detected (NOT DETECT); Cutibacterium acnes (P.acnes) Not Detected (NOT DETECT); Enterococcus Not Detected (NOT DETECT); Enterococcus faecalis Not Detected (NOT DETECT); Enterococcus faecium Not Detected (NOT DETECT); Lactobacillus species Not Detected (NOT DETECT); Listeria Not Detected (NOT DETECT); Listeria monocytogenes Not Detected (NOT DETECT); Micrococcus Not Detected (NOT DETECT); Pan Candida Not Detected (NOT DETECT); Pan Gram-Negative Not Detected (NOT DETECT); Staphylococcus lugdunensis Not Detected (NOT DETECT); Streptococcus agalactiae Not Detected (NOT DETECT); Streptococcus anginosus group Not Detected (NOT DETECT); Streptococcus pneumoniae Not Detected (NOT DETECT); Streptococcus pyogenes Not Detected (NOT DETECT); Streptococcus species Not Detected (NOT DETECT); mecA Detected (NOT DETECT)
[2024-12-20 08:05] LABS: Staphylococcus epidermidis Detected (NOT DETECT); Staphylococcus species Detected (NOT DETECT); mecC Detected (NOT DETECT)
--- NOTE | 2024-12-20 08:38 | PC.NURSE ---
I called and spoke with [facility]'s transfer center at and spoke with GAIL Weaver. I inquired about bed status for this patient and he states that their hospital is still at capacity at this time and patient remains on the waitlist. He states he will call back when a bed becomes available. I informed him that I would call back intermittently and check on the status of transfer as well. I notified all physicians listed on patient's case as well as primary RN, Tony Dowd RN.
[2024-12-20 08:41] LABS: Digoxin 1.6 ng/mL (0.6-1.2)
--- NOTE | 2024-12-20 10:44 | XR_ITS ---
WS: [id number] XR chest 1V portable [id number] REASON FOR EXAM: dyspnea/cough FINDINGS: Right IJ catheter with tip in the distal SVC near the cavoatrial junction. Significant cardiomegaly with central pulmonary venous congestion and enlarged central pulmonary arteries. Reticular and groundglass opacities in both lungs. There does not appear to be significant change compared to the examination of 12/19/2024 at 1:53 p.m. XR/XR chest 1V portable [id number] IMPRESSION: Stable abnormal chest as above.
--- NOTE | 2024-12-20 10:45 | XR_ITS ---
WS: [id number] XR KUB portable [id number] REASON FOR EXAM: Diminished urine output FINDINGS: Due to patient obesity the imaging is below diagnostic quality. There are some nonspecific minimally dilated gas-filled small bowel loops. No free air identified. No mass or urinary tract calculi are identified. XR/XR KUB portable [id number] IMPRESSION: Low quality diagnostic study as above. No acute abnormality identified.
[2024-12-20 11:57] LABS: Alanine Aminotransferase 55 U/L (0-41); Albumin Level 2.7 g/dL (3.5-5.2); Alkaline Phosphatase 204 U/L (40-130); Anion Gap 15.8 (5-19); Aspartate Amino Transferase 150 U/L (0-40); Blood Urea Nitrogen 62 mg/dL (6-20); Calcium 8.3 mg/dL (8.5-10.5); Carbon Dioxide 30 mmol/L (22-29); Chloride 98 mmol/L (98-107); Creatinine Clr Calc Pharmacy 44.6657; Globulin 5.4 g/dL (1.3-4.6); Glomerular Filtration Rate 18.1 mL/min (90-130); Glucose 105 mg/dL (65-115); Osmolality Calculated 308 mOsm/kg (285-295); Phosphorus 4.5 mg/dL (2.5-4.5); Potassium 3.8 mmol/L (3.5-5.1); Sodium 140 mmol/L (136-145); Total Protein 8.1 g/dL (6.6-8.7)
[2024-12-20 12:22] LABS: NT Pro B Type Natriuretic Pept 38361 pg/mL (0-125)
[2024-12-20 12:22] LABS: Lactate (Lactic Acid level) 1.9 mmol/L (0.5-2.2)
--- NOTE | 2024-12-20 12:29 | P.PN_ITS ---
Vitals/I&O/Wt Last Vital Signs Temp 97.9 F 12/20/24 12:00 Pulse 62 12/20/24 12:00 Resp 19 H 12/20/24 12:00 BP 101/53 12/20/24 12:00 Pulse Ox 91 12/20/24 12:00 O2 Del Method BiPAP 12/20/24 12:00 FiO2 28 12/20/24 12:00 12/19/24 12/20/24 12/20/24 22:59 06:59 14:59 Intake Total 3353.05 / 3413.175 157 / 3570.175 265.530 / 265.530 Output Total 850 / 850 Balance 3353.05 / 3413.175 -693 / 2720.175 265.530 / 265.530 Weight last 48 hrs Weight 212.009 kg Weight 285.763 kg Physical Exam 2 Narrative: General: Obese male laying in bed with BiPAP on. Does arouse when name is called and opens his eyes. HEENT: Normocephalic, atraumatic, EOMI, on BiPAP at this time. Cardio: Very muffled heart sounds difficult to auscultate secondary to large body habitus Respiratory: Mainly clear to auscultation anteriorly, unable to accurately assess due to very muffled breath sounds due to body habitus and transmitted breath sounds from BiPAP. GI: Abdomen soft, abdomen nontender today, bowel sounds present. Behavior: Altered Extremities: Various lower extremity wounds present. Urinary Catheter Management: Perez: Cath Placed During This Visit: no Reason for Continuing Indwelling Catheter: Accurate Measurement of Urinary Output in Critically Ill Patients Data 12/20/24 03:33 12/20/24 11:04 Micro: Microbiology 12/19/24 10:59 Blood Culture - Preliminary Blood NEGATIVE TO DATE 12/19/24 11:30 Urine Culture - Preliminary Urine,Clean Catch Gram Negative Rods 12/19/24 11:11 Blood Culture - Preliminary Blood Staphylococcus epidermidis A&P Assessment and plan (1) Congestive heart failure: (2) Atrial fibrillation: (3) Morbid obesity: (4) Lactic acidosis: (5) UTI (urinary tract infection): (6) Leukocytosis: (7) Sepsis: (8) Wound of lower extremity: (9) Decubitus ulcers: (10) Hypoxia: (11) Moderate persistent asthma: Plan #Sepsis secondary to UTI versus respiratory cause #Most likely acute on chronic combined systolic diastolic heart failure # NSTEMI #Possible cardiogenic shock #Lactic acidosis #Severe morbid obesity #Decubitus ulcers #Bilateral lower extremity wounds #Chronic congestive heart failure, possibly systolic with EF less than 35% #Atrial fibrillation, rate controlled #Diabetes mellitus, insulin-dependent #Respiratory alkalosis, hypercapnia #Altered mental status # History of pulmonary embolism #Moderate persistent asthma #Hyperlipidemia -We will request records from [facility] as patient may have had imaging studies done at that facility when previously transferred over. ? Digoxin level supratherapeutic. 1.6 today. ? Stop further digoxin doses. ? Consult cardiology. May consider DigiFab antibodies ? MALIK with creatinine 3.1. Real baseline unknown however at previous admission creatinine was normal at 0.9. ? BNP 47,000. Questionable cardiogenic shock? ? Will consult cardiology for input ? Consult nephrology for MALIK ? Lactic acidosis 10.7 on arrival, repeat lactic 4.8. ? Baseline troponin 252, delta troponin 34.5. Most likely high secondary to CKD however we do not have any previous values. ? Patient on Xarelto at long term. ? Start heparin drip. ? EKG does show right bundle branch block. No acute ST changes. ? Hold Entresto, spironolactone, metoprolol succinate. ? Hold bumetanide at this time. Patient did require vasopressors initially on arrival. -3+ blood on urinalysis, 3+ leukocyte esterase, greater than 100 WBCs. 4+ bacteria. Query possibility of kidney stone?. Patient needs CT chest abdomen pelvis without contrast for further assessment at the very least. ? Check ultrasound abdomen, check cardiac echo stat ? Accu-Cheks every 6 hours. Low-dose intensity sliding scale insulin if required. ? Check TSH, blood cultures, urine culture, sputum culture Gram stain ? Order wound care consult ? Will place on empiric broad-spectrum antibiotics vancomycin and cefepime. Renally dose both. ? DuoNeb every 6 hours scheduled ? Check procalcitonin, hemoglobin A1C - Place perez cathether - Repeat cmp, cbc at 7 pm. Full code DVT prophylaxis: On Xarelto at home. Will place on heparin drip while here. Medicine will continue to follow during transition of transfer to higher level of care. 12/20/2024 Continue to hold Entresto, spironolactone, metoprolol succinate Vasopressor requirement decreasing patient is now on 2 mics of Levophed ? TSH 9.0. Check free T4 ? Liver enzymes, bilirubin slowly trending down. Most likely elevation secondary to heart failure hepatic congestion. ? BNP trending down to 38,000 ? Lactic acid normalized ? BUN/creatinine same as admission if not trending upwards. ? Patient 2 L positive since admission. Urine output 1400 overnight ? Continue vancomycin and cefepime ? Patient did respond to Lasix overnight received 40 IV x 1. ? Will discuss with nephrology plan going forward. ? Blood culture sputum culture, urine culture pending. Urine culture positive for gram-negative rods ? Records reviewed from [facility]. Patient did have imaging studies done there was results as follows Hemoglobin A1c 6.4, procalcitonin 0.25 Hepatitis panel was negative Urinalysis did show mucus bacteria present. Scant Enterobacter cloacae a seen. Unable to quantitate Proteus vulgaris. Moderate Enterococcus faecium vancomycin-resistant Enterococcus, scant normal skin warren. Susceptibility results indicated resistant to cefepime however susceptible to ciprofloxacin, gentamicin, TMP-SMX. Will discuss with ID over the phone regarding antibiotic usage. BNP [address] abdomen pelvis performed shows left lower lobe consolidative airspace opacities, history of cholecystectomy mild biliary ductal dilatation nonspecific in setting of cholecystectomy. No active GI bleed identified. Splenomegaly noted. Intermediate left renal lesions up to 5.7 cm further workup with renal ultrasound or MRI suggested. CT head negative for acute intracranial findings. Encephalomalacia in inferior right frontal lobe likely sequela of prior traumatic brain injury Chest x-ray showed left lung predominant hazy opacity which represent pulmonary edema or pneumonia Transthoracic echocardiogram showed left ventricular function 45 to 50% by visual estimate. Unable to assess for wall motion abnormalities, unable to assess for diastolic function. Right ventricle not well-visualized but appears dilated and function mildly reduced. Left atrium volume mildly dilated right atrial size normal. Aortic valve not well-visualized mitral valve not well- visualized tricuspid valve not well-seen no evidence of tricuspid stenosis there is mild tricuspid regurgitation. Right ventricular systolic pressure is 45 Atrial fibrillation with frequent ventricular premature complexes superior axis seen on EKG Hold rosuvastatin, Xarelto, spironolactone, metoprolol succinate, or other oral medications including digoxin secondary to patient's mental status Check ABG Repeat CBC CMP, lactic acid, magnesium, phosphorus, procalcitonin, CRP Heart rate occasionally trending down however coming back up into the 70s. Discussed digoxin level will cardiology. Will hold off on DigiFab antibodies for now. PDMP PDMP Reviewed: Not Reviewed Attestations 2 Medical Necessity Statement*: Septic shock, possible cardiogenic shock, UTI, possible pneumonia, bradycardia. Patient has multitude of medical issues at this time along with MALIK requiring further hospitalization. Pending transfer to [facility] for further diagnostic studies Diagnoses Other congestive heart failure I50.9 Heart failure type: other Atrial fibrillation, unspecified type I48.91 Atrial fibrillation type: unspecified Morbid obesity E66.01 Lactic acidosis E87.20 UTI (urinary tract infection) N39.0 Leukocytosis D72.829 Sepsis, due to unspecified organism, unspecified whether acute organ dysfunction present A41.9 Sepsis acute organ dysfunction status: unspecified Sepsis type: sepsis due to unspecified organism Wound of lower extremity S81.809A Decubitus ulcers L89.90 Hypoxia R09.02 Moderate persistent asthma J45.40
[2024-12-20 12:35] LABS: Partial Thromboplastin Time > 250.0 SECONDS (23.9-36.7)
--- NOTE | 2024-12-20 13:04 | P.PN_ITS ---
<Statement entered by Topher Dick M.D - 12/21/24 10:03> Patient was cared for in conjunction with an advanced practice practitioner.? I reviewed the chart and all pertinent data including imaging, telemetry, and laboratory results.? I discussed the patient in detail with the advanced practice practitioner.? Please see?their note for progress note, testing results and agreed upon plan of care for the patient. Lactic acid is improving. No significant change from yesterday. ECHO had no ultrasonic windows. Continue heparin gtt. Plans for transfer today Subjective 2 Subjective: Patient is on BiPAP at this time. He is not responding to my questions. Blood pressure and heart rate are stable. Currently on Levophed and heparin drip. Lungs are clear. Vitals/I&O/Wt Last Vital Signs Temp 97.9 F 12/20/24 12:00 Pulse 62 12/20/24 12:00 Resp 19 H 12/20/24 12:00 BP 101/53 12/20/24 12:00 Pulse Ox 91 12/20/24 12:00 O2 Del Method BiPAP 12/20/24 12:00 FiO2 28 12/20/24 12:00 12/19/24 12/20/24 12/20/24 22:59 06:59 14:59 Intake Total 3353.05 / 3413.175 157 / 3570.175 265.530 / 265.530 Output Total 850 / 850 Balance 3353.05 / 3413.175 -693 / 2720.175 265.530 / 265.530 Weight last 48 hrs Weight 467 lb 6.4 oz Weight 630 lb Physical Exam 2 Narrative: General: Currently on bipap, nonresponsive to questions Eye: PERRL Respiratory: Normal respiratory effort, clear to auscultation bilaterally throughout all lung andrade, no use of accessory muscles Cardio: No JVD, regular rate, regular rhythm, S1 S2 normal, no murmurs, peripheral pulses 2+ radial palpated bilaterally GI: obese Extremities: Full ROM, normal, normal capillary refill, no cyanosis or edema Neuro: not repsponsive, obtunded Skin: No rashes or lesions noted, no wounds Urinary Catheter Management: Medina: Cath Placed During This Visit: no Reason for Continuing Indwelling Catheter: Accurate Measurement of Urinary Output in Critically Ill Patients Data 12/20/24 03:33 12/20/24 11:04 Micro: Microbiology 12/19/24 10:59 Blood Culture - Preliminary Blood NEGATIVE TO DATE 12/19/24 11:30 Urine Culture - Preliminary Urine,Clean Catch Gram Negative Rods 12/19/24 11:11 Blood Culture - Preliminary Blood Staphylococcus epidermidis A&P Assessment and plan (1) Atrial fibrillation: (2) Congestive heart failure: (3) Sepsis: (4) Morbid obesity: (5) Shock: Plan Patient cannot give any history. Unfortunately because of body habitus echocardiogram could not determine LV function or valvular disease. Patient is in shock. Likely septic given elevated WBC count and lactic acid. This is improving. May have congestive heart failure component. Continue Levophed. Continue heparin. Troponin elevation likely secondary to demand ischemia in setting of shock and MALIK. Creatinine now 3.6. Patient is awaiting transfer. PDMP PDMP Reviewed: Not Reviewed Attestations 2 Medical Necessity Statement*: Deferred to primary. Coding Level of Care Code Acute Code for [facility] Diagnoses Atrial fibrillation, unspecified type I48.91 Atrial fibrillation type: unspecified Other congestive heart failure I50.9 Heart failure type: other Sepsis, due to unspecified organism, unspecified whether acute organ dysfunction present A41.9 Sepsis type: sepsis due to unspecified organism Sepsis acute organ dysfunction status: unspecified Morbid obesity E66.01 Shock R57.9
--- NOTE | 2024-12-20 13:08 | PC.NURSE ---
PTT came back greater than 250. Dr. Wellington ordered to stop heparin drip for 4 hours then restart heparin drip.
--- NOTE | 2024-12-20 13:23 | P.PN_ITS ---
Subjective 2 Subjective: Patient is lethargic but arousable on bipap with an fio2 28%. He is on levophed 2mcg/min Vitals/I&O/Wt Last Vital Signs Temp 97.9 F 12/20/24 12:00 Pulse 62 12/20/24 12:00 Resp 19 H 12/20/24 12:00 BP 101/53 12/20/24 12:00 Pulse Ox 91 12/20/24 12:00 O2 Del Method BiPAP 12/20/24 12:00 FiO2 28 12/20/24 12:00 12/19/24 12/20/24 12/20/24 22:59 06:59 14:59 Intake Total 3353.05 / 3413.175 157 / 3570.175 538.297 / 538.297 Output Total 850 / 850 600 / 600 Balance 3353.05 / 3413.175 -693 / 2720.175 -61.703 / -61.703 Weight last 48 hrs Weight 212.009 kg Weight 285.763 kg Physical Exam 2 Narrative: GEN: nad, lethargic, obese, bipap mask in place HEAD: normocephalic, atraumatic EYES: eyes are closed HEENT: bipap mask in place NECK: no jvd CV: rrr LUNGS: diminished BS bilaterally ABD: soft, obese, NT EXT: no LE edema SKIN: no rash NEURO: lethargic Urinary Catheter Management: Medina: Cath Placed During This Visit: no Reason for Continuing Indwelling Catheter: Accurate Measurement of Urinary Output in Critically Ill Patients Data 12/20/24 03:33 12/20/24 11:04 Micro: Microbiology 12/19/24 10:59 Blood Culture - Preliminary Blood NEGATIVE TO DATE 12/19/24 11:30 Urine Culture - Preliminary Urine,Clean Catch Gram Negative Rods 12/19/24 11:11 Blood Culture - Preliminary Blood Staphylococcus epidermidis A&P Assessment and plan (1) MALIK (acute kidney injury): (2) Shock: (3) Congestive heart failure: Plan 1. Acute kidney injury- His malik is likely due to ATN in the setting of acute infection, patient currently on pressors. he still has volume overload/pulmonary edema. - His creatinine is rising, but he is non-oliguric with stable lytes. there is no acute indication for renal replacement therapy at this time - Patient is currently awaiting transfer to [facility] (due to large body habitus and unable to perform imaging studies:) - Holding Entresto and Aldactone in [place] for now 2. Sepsis- lactic acidosis, due to sepsis likely from UTI, on abx per the primary service 3. Morbid obesity with decubitus ulcers 4. cardiomyopathy - diuretics on hold temporarily PDMP PDMP Reviewed: Not Reviewed Attestations 2 Medical Necessity Statement*: malik Time Spent in Patient Care: 25 minutes Coding Level of Care Code Acute Code for [facility] Diagnoses MALIK (acute kidney injury) N17.9 Shock R57.9 Other congestive heart failure I50.9 Heart failure type: other
[2024-12-20 15:46] LABS: Partial Thromboplastin Time 70.7 SECONDS (23.9-36.7)
[2024-12-20 16:18] LABS: ABG PH Result 7.37 (7.35-7.45); Alveolar-Arterial Oxygen Gradi 9.2 mmHg (5-10); Arterial Blood Gas Hematocrit 32.1 % (42-52); Base Excess ABG 8.5 mmol/L (-2.0-2.0); Blood Gas Allen Test Pos; Blood Gas Operator Identificat CAK; Blood Gas Sample Site Brachial, left; Blood Gas Sample Type Arterial; Carboxyhemoglobin 1.9 %THgb (0.4-20.1); HCO3 ABG 35.4 mmol/L (22-26); HGB O2 Sat 80.1 % (95-100); Ionized Calcium Level - ABG 1.1 mmol/L (1.1-1.4); Methemoglobin 1.1 % (0.4-1.5); Oxygen Device BIPAP; Oxygen Saturation ABG 82.6; PO2 ABG 54.1 mmHg (80.0-100.0); PO2 FiO2 Ratio Arterial Blood 193; Potassium Level - ABG 3.6 mmol/L (3.5-5.0); Total Hemoglobin 10.5 g/dL (14-18)
[2024-12-20 16:19] LABS: ABG PCO2 61.4 mmHg (35-45)
[2024-12-20] MEDS: meropenem 1,000 mg SDV 1000 MG IVP (17:16)
[2024-12-20] MEDS: linezolid premix 600 MG/300 ML PREMIX 300 MG IV (17:17)
--- NOTE | 2024-12-20 17:19 | PC.NURSE ---
Dr. Wellington ordered to restart the heparin drip 3 mls/hr. Heparin restarted at 46 ml/hr.
[2024-12-20 18:29] LABS: C Reactive Protein 31.4 mg/L (0.0-4.9)
--- NOTE | 2024-12-20 18:30 | XRR_ITS ---
PROCEDURE INFORMATION: Exam: XR Chest Exam date and time: 12/20/2024 6:36 PM Age: 49 years old Clinical indication: Device placement; Ett placement (vent status); Additional info: Dyspnea/cough TECHNIQUE: Imaging protocol: Radiologic exam of the chest. Views: 1 view. COMPARISON: CR XR chest 1V portable [id number] 12/20/2024 11:04 AM FINDINGS: Tubes, catheters and devices: Enteric feeding tube with its distal tip subdiaphragmatic. Side port appears to be at the gastroesophageal junction. Stable right-sided central venous catheter. Endotracheal tube is present with its distal tip 2.3 cm of the juana. Limited evaluation of the left lung due to monitor/device. Lungs: Unchanged appearance of the lungs related to pulmonary vasculature congestive changes and bilateral basilar opacities. Pleural spaces: Unremarkable. No pleural effusion. No pneumothorax. Heart/Mediastinum: Cardiomegaly. Bones/joints: Unremarkable. XR/XR chest 1V portable [id number] IMPRESSION: As above.
[2024-12-20] MEDS: fentaNYL 1,000 MCG/100 ML BAG 2.5 MCG IV (18:32)
[2024-12-20] MEDS: succinylcholine 20 mg/mL SDV 10mL 200 MG IVP (18:49)
[2024-12-20] MEDS: etomidate 2 mg/mL INJ SDV 10 mL 40 MG IVP (18:49)
[2024-12-20] MEDS: midazolam hcl 100 MG/100 ML BAG IV (19:00)
--- NOTE | 2024-12-20 19:14 | PC.NURSE ---
Report was given to Yvonne REYNOLDS in [facility]. [phone]. Daughter Doris was contacted to ask for permission to transfer which she agreed.
[2024-12-20] MEDS: norepinephrine 4 MG/250 ML BAG 15 MG IV (19:16)
--- NOTE | 2024-12-20 21:25 | PC.NURSE ---
Transfer Transferred care to [facility] service to transport patient to [facility] in [place], [place]. Report given over the phone to Hussain Hughes supervisor die casting Mateo and in person to hurl shaker Caroline. Patient placed on [facility]'s ventilator, transferred pumps and medications over. Patient left ICU with [facility] staff at approximately 2120. Called [facility]U to let them know that patient was on his way to [place].
--- NOTE | 2024-12-20 22:14 | PC.NURSE ---
Belongings Patient's personal CPAP machine left behind. Not taken with patient to [place] upon transfer. Will leave with Lili Casillas RN/manager loan.
== END 2024-12-20 21:20 | disposition other institution (70) ==
LOC: ER 10:47 → ICU 18:07
PROVIDERS: Internal Medicine; Admitting Provider Internal Medicine; Emergency Provider Family Medicine; Visit Provider Internal Medicine
DX: R41.82 Altered mental status, unspecified (principal); A41.9 Sepsis, unspecified organism; E66.01 Morbid (severe) obesity due to excess calories; Z68.44 Body mass index [BMI] 60.0-69.9, adult; I48.91 Unspecified atrial fibrillation; I50.9 Heart failure, unspecified; Z11.52 Encounter for screening for COVID-19; J96.01 Acute respiratory failure with hypoxia; N39.0 Urinary tract infection, site not specified; Z79.899 Other long term (current) drug therapy; Z79.4 Long term (current) use of insulin; Z79.890 Hormone replacement therapy; Z88.8 Allergy status to other drugs, medicaments and biological substances; Z79.01 Long term (current) use of anticoagulants; F32.9 Major depressive disorder, single episode, unspecified; G47.33 Obstructive sleep apnea (adult) (pediatric); Z86.711 Personal history of pulmonary embolism; I21.4 Non-ST elevation (NSTEMI) myocardial infarction; E87.3 Alkalosis; E78.5 Hyperlipidemia, unspecified; J45.40 Moderate persistent asthma, uncomplicated; N17.9 Acute kidney failure, unspecified; L89.90 Pressure ulcer of unspecified site, unspecified stage; I42.9 Cardiomyopathy, unspecified; R65.21 Severe sepsis with septic shock
CPT/HCPCS: 36415; 36416; 36592; 36600; 51702; 71045; 74018; 80051; 80053; 80162; 80202; 81001; 82009; 82330; 82805; 82962; 83036; 83605; 83690; 83735; 83880; 84100; 84145; 84439; 84443; 84484; 85025; 85730; 86140; 87040; 87070; 87077; 87086; 87150; 87186; 87205; 87637; 93005; 93308; 94002; 94640; 94660; 94799; 96365; 96366; 96367; 96375; 96376; 99291; 99292; G0378; J0330; J0692; J1644; J1938; J2020; J2185; J2250; J2543; J3010; J3370; J3372; J3490; J7030; J7050; J9999; P9046